=== PATIENT | female | born 1955 | race Caucasian/White ===

== ENCOUNTER → 2016-02-21 | Outpatient (REF) ==
[~2016-02-21] MED LIST: AMLO10TA2 PO; ASPI1TAB PO; ASPI32ECTA PO; ATOR1TAB21 PO; ATOR40TA PO; BACITAB3 PO; BUPR150T5 PO; CLON0.5T PO; CLOP75TA2 PO; CO Q100C10 PO; COLA100C PO; DOCU100C PO; ESTRCAP PO; FAMO20TA PO; LEVO50TA5 PO; LEXA1TAB2 PO; LOSA50TA20 PO; MAPA325T2 PO; METO75TA PO; NITR4TASL SL; POTA10CA PO; RISATAB3 PO; SENN1TAB4 PO; SYNT100T PO; TRAM50TA2 PO; VENL75CA PO; VITA400C2 PO
[2016-02-21 08:56] LABS: ANION GAP 9 MEQ/L (8-16); BLOOD UREA NITROGEN 12 MG/DL (7-18); CALCIUM LEVEL 9.4 MG/DL (8.5-10.1); CARBON DIOXIDE LEVEL 28 MEQ/L (21-32); CHLORIDE LEVEL 107 MEQ/L (98-107); CREATININE FOR GFR 0.61 MG/DL (0.55-1.02); GLOMERULAR FILTRATION RATE > 60.0 (>51); GLUCOSE, FASTING 125 MG/DL (70-105); POTASSIUM SERUM 3.9 MEQ/L (3.5-5.1); SODIUM LEVEL 144 MEQ/L (136-145)
== END ==
LOC: SKLAB2 07:00
PROVIDERS: ATTEND Family Medicine
DX: I63.9 Cerebral infarction, unspecified (principal)

== ENCOUNTER → 2016-02-22 | Outpatient (REF) | payer MEDICARE | LOC: M LAB 16:00 → SKLAB2 16:00 | PROVIDERS: ATTEND Family Medicine | DX: R05 Cough (principal) ==

== ENCOUNTER → 2016-02-28 | Outpatient (REF) ==
[2016-02-28 09:30] LABS: ANION GAP 12 MEQ/L (8-16); BLOOD UREA NITROGEN 11 MG/DL (7-18); CARBON DIOXIDE LEVEL 28 MEQ/L (21-32); CHLORIDE LEVEL 107 MEQ/L (98-107); CREATININE FOR GFR 0.61 MG/DL (0.55-1.02); GLOMERULAR FILTRATION RATE > 60.0 (>51); GLUCOSE, FASTING 167 MG/DL (70-105); SODIUM LEVEL 147 MEQ/L (136-145)
== END ==
LOC: SKLAB2 08:00
PROVIDERS: ATTEND Family Medicine
DX: I63.9 Cerebral infarction, unspecified (principal)

== ENCOUNTER → 2016-03-06 | Outpatient (REF) | payer MEDICARE ==
[2016-03-06 08:41] LABS: ANION GAP 9 MEQ/L (8-16); BLOOD UREA NITROGEN 13 MG/DL (7-18); CALCIUM LEVEL 9.8 MG/DL (8.5-10.1); CARBON DIOXIDE LEVEL 27 MEQ/L (21-32); CHLORIDE LEVEL 108 MEQ/L (98-107); CREATININE FOR GFR 0.64 MG/DL (0.55-1.02); FREE T4 1.48 NG/DL (0.76-1.46); GLOMERULAR FILTRATION RATE > 60.0 (>51); GLUCOSE, FASTING 139 MG/DL (70-105); POTASSIUM SERUM 4.3 MEQ/L (3.5-5.1); SODIUM LEVEL 144 MEQ/L (136-145)
== END ==
LOC: SKLAB2 07:00
PROVIDERS: ATTEND Family Medicine
DX: E03.9 Hypothyroidism, unspecified (principal)

== ENCOUNTER 2016-03-07 19:54 | Emergency (ER) | payer MEDICARE ==
--- NOTE | 2016-03-07 21:50 | REPUSA ---
HISTORY: Trauma TECHNIQUE: Axial CT was performed of the head without intravenous contrast by obtaining contiguous ax ial slices from the skull vertex to skull base at level of occipital condyles. COMPARISON: CT head 02/08/2016, MRI brain 03/30/2015 FINDINGS: No acute intracranial hemorrhage or evidence of acute transcortical ischemia. No suspicious intra-axi al or extra-axial fluid collection, midline shift, subfalcine herniation, or hydrocephalus. Stable 1.6 cm left thalamic hypodense lesion with rim like density on axial image 14, and 1.5 cm dens e mass in the left CPA. Stable prominence of the cortical sulci and ventricular system and perinephric white matter lucencies , more commonly due to age-appropriate atrophy and chronic small vessel ischemic changes respectively . Paranasal sinuses, mastoid air cells are well pneumatized. Optic globes, orbital compartments, and os seous structures are unremarkable. Right periorbital soft tissue emphysema likely from trauma. IMPRESSION: 1. Right periorbital soft tissue emphysema likely posttraumatic. No hematoma identified. 2. Stable 1.6 cm left thalamic hypodense lesion with a rim like density for which neoplasm is not exc luded. Otherwise no other evidence of acute intracranial hemorrhage. 3. Stable 1.5 cm left CPA mass which may represent meningioma.
--- NOTE | 2016-03-07 22:00 | REPUSA ---
HISTORY: Trauma TECHNIQUE: Multiple contiguous axial CT images were obtained through the facial bones at 2.5 mm slice thickness without the use of intravenous contrast. 1.25 mm axial reformations were created from whic h sagittal and coronal reformations were performed to evaluate the orbital floors. COMPARISON: None FINDINGS: Right zygomatic soft tissue swelling and periportal soft tissue emphysema. No acute facial bone fract ure. The pterygoid plates and zygomatic arches are intact. The orbits including the orbital floors ar e intact. The globes are unremarkable. There is no evidence of post septal inflammation or retrobulba r masses. The leonor dedrick, cribriform plate and fovea ethmoidalis are intact. The bilateral ostiomea lanie complexes are patent. The nasal septum is intact. Nasal turbinates and cavity are unremarkable. T he paranasal sinuses are well-developed and aerated. There are no air-fluid levels identified in the sinuses. The mandible is intact and both temporomandibular joints are located. The visualized intracr anial structures are unremarkable. IMPRESSION: No facial bone fracture. Right zygomatic soft tissue tissue swelling and periorbital soft tissue emph ysema.
--- NOTE | 2016-03-07 22:10 | REPUSA ---
Clinical statement: Trauma Technique: Contiguous noncontrast transaxial 2.[address] images were obtained through the cervical spin e. Reconstructions were then created in the axial plane at 1.25 mm from which reformations were gener ated in the coronal and sagittal planes to assess spinal alignment. Comparison: None Findings: No prevertebral soft tissue swelling is seen. No acute fracture, dislocation, or suspicious lesion. Multilevel degenerative changes, moderate at C3 -C6 with endplate sclerosis disc space narrowing, anterior and posterior spurring, and with mild face t arthropathy. Straightening of cervical lordosis which may be voluntary positional or from muscle sp asm. Spinal canal appears grossly patent. Impression: No acute fracture. Moderate C3-C6 degenerative changes as described.
--- NOTE | 2016-03-07 22:57 | EDDOCDS ---
Physician Documentation [facility] Name: Merissa Mccormack Age: 60 yrs Sex: Female : 1955 Arrival Date: 03/07/2016 Time: 19:54 Bed Family 1 Private MD: Arnaud Pacheco MD Disposition: 03/07/16 22:27 Discharged to Home/Self Care. Impression: Fall from chair, Unspecified injury of head, Laceration without foreign body of right eyelid and periocular area. - Condition is Stable. - Discharge Instructions: Head Injury, Adult, Facial Laceration, Laceration Care, Adult, Dlez-ha-[id number]. - Medication Reconciliation, Local Pharmacy Hours form. - Follow up: Arnaud Pacheco; When: 2 - 3 days; Reason: Recheck today's complaints, Continuance of care. - Problem is new. - Symptoms are unchanged. Historical: - Allergies: Bees; - Home Meds: 1. levothyroxine 50 mcg Oral tab 1 tab once daily (Last dose: 03/07/2016 06:22) 2. famotidine 20 mg Oral tab 3. CoQ-10 100 mg oral cap 4. docusate sodium 100 mg Oral cap 1 cap once daily 5. amlodipine 10 mg Oral tab 1 tab once daily (Last dose: 03/07/2016 09:09) 6. Plavix 75 mg Oral tab 1 tab once daily (Last dose: 03/07/2016 09:09) 7. losartan 50 mg oral tab 1 tab once daily (Last dose: 03/07/2016 09:09) 8. Lopressor 75 mg Oral 1 tab 2 times per day (Last dose: 03/07/2016 09:07) 9. Wellbutrin 150 mg Oral 1 tab daily (Last dose: 03/07/2016 09:07) 10. atorvastatin 10 mg oral tab 1 tab once daily - PMHx: Arthritis; Constipation, Chronic; CVA; Depression; hyperlipidemia; Hypothyroidism; - PSHx: total shoulder surgery; Tonsillectomy; - Social history: Smoking status: Patient states former smoker of tobacco. No barriers to communication noted. - Family history: Not pertinent. - : The pt / caregiver states he / she is on anticoagulants: Plavix. Home medication list is obtained from the facility APR. - Exposure Risk Screening:: None identified. Vital Signs: 03/07 20:14 BP 141 / 58; Pulse 94; Resp 18; Temp 99(O); Pulse Ox 95% on R/A; Weight 71.12 kg / ko2 156.79 lbs; Height 60 in. (152.40 cm); Pain 0/10; 22:33 BP 125 / 60; Pulse 54; Resp 18; Temp 98.7(O); Pulse Ox 100% on R/A; Pain 0/10; jose guadalupe 22:49 BP 149 / 64; Pulse 98; Resp 20; Temp 99.3(O); Pulse Ox 100% on R/A; Pain 0/10; ls3 20:14 Body Mass Index 30.62 (71.12 kg, 152.40 cm) ko2 [place] Coma Score: 20:02 Eye Response: spontaneous(4). Verbal Response: oriented(5). Motor Response: obeys ko2 commands(6). Total: 15. MDM: 20:34 CT Head Without Contrast Ordered. EDMS 20:35 CT Spine,Cervical W/o Contrast Ordered. EDMS 20:35 CT Maxilofacial W/out Contrast Ordered. EDMS 20:35 Pelvis Ordered. EDMS 22:01 Financial registration complete. tomi Signatures: Dispatcher [employer] EDMS Prashant Ervin, Ursula WittRN RN [email or web address] Martina Murphy MTDD
--- NOTE | 2016-03-07 22:57 | EDDOCDS ---
Nurse's Notes [facility] Name: Merissa Mccormack Age: 60 yrs Sex: Female : 1955 Arrival Date: 03/07/2016 Time: 19:54 Bed Family 1 Private MD: Arnaud Pacheco MD Diagnosis: Fall from chair;Unspecified injury of head;Laceration without foreign body of right eyelid and periocular area Presentation: 03/07 20:02 This patient has no additional risk factors. Mechanism of Injury: The problem was ko2 sustained at a long term or assisted living facility, resulted from a fall. Suicide/Homicide risk assessment- the patient denies having any suicidal and/or homicidal ideations and does not present with any other emotional, behavioral or mental health complaints. Status: Patient is not a food service sales representatives or dependent. Transition of care: patient was received from [facility]. Care prior to arrival: See EMS report. 20:02 Acuity: BULMARO Level 3 [facility] 20:02 Method Of Arrival: Ambulance [facility] 20:16 Adult Sepsis Screening: The patient does not have new or worsening altered mentation. [facility] Patient's respiratory rate is less than 22. Systolic blood pressure is greater than 100. Patient has a qSOFA score of 0- Negative Sepsis Screen. 20:45 Presenting complaint: EMS states: pt fell from wheelchair and is on plavix. Was sent to [facility] the ER to be evaluated. Pt has right side deficits from previous stroke. Triage Assessment: 20:13 General: Appears in no apparent distress, comfortable. Pain: Denies pain. HIV screening [facility] for this visit Offered previously. The patient is triaged at the bedside. See Assessment in Nurses Notes section of ED record. Neurological: Level of Consciousness is awake, alert, Reports no additional symptoms. Respiratory: Airway is patent Respiratory effort is even, unlabored, Respiratory pattern is regular, symmetrical. GI: Abdomen is non- distended. Derm: Bruising that is Swollen area noted on right eye, right cheek and right ear. Historical: - Allergies: Bees; - Home Meds: 1. levothyroxine 50 mcg Oral tab 1 tab once daily (Last dose: 03/07/2016 06:22) 2. famotidine 20 mg Oral tab 3. CoQ-10 100 mg oral cap 4. docusate sodium 100 mg Oral cap 1 cap once daily 5. amlodipine 10 mg Oral tab 1 tab once daily (Last dose: 03/07/2016 09:09) 6. Plavix 75 mg Oral tab 1 tab once daily (Last dose: 03/07/2016 09:09) 7. losartan 50 mg oral tab 1 tab once daily (Last dose: 03/07/2016 09:09) 8. Lopressor 75 mg Oral 1 tab 2 times per day (Last dose: 03/07/2016 09:07) 9. Wellbutrin 150 mg Oral 1 tab daily (Last dose: 03/07/2016 09:07) 10. atorvastatin 10 mg oral tab 1 tab once daily - PMHx: Arthritis; Constipation, Chronic; CVA; Depression; hyperlipidemia; Hypothyroidism; - PSHx: total shoulder surgery; Tonsillectomy; - Social history: Smoking status: Patient states former smoker of tobacco. No barriers to communication noted. - Family history: Not pertinent. - : The pt / caregiver states he / she is on anticoagulants: Plavix. Home medication list is obtained from the facility APR. - Exposure Risk Screening:: None identified. Screenin:16 Screening information is obtained from prior medical records. Fall risk: At risk due to ko2 immobility, prior history of falls. Assistance ADL's: Requires assistance with meal preparation, this assistance is provided by residence staff. Abuse/DV Screen: The patient / caregiver reports he/she is: not in a situation that causes fear, pain or injury. Nutritional screening: No deficits noted. Advance Directives: Currently, there is a health care proxy, Maya Pham. There is no active DNR order. There is no living will. There is no Power of Quarter Backer. 21:16 home support is adequate. ko2 Assessment: 20:15 General: See triage assessment. ko2 21:15 General: Appears in no apparent distress, Behavior is cooperative. Pain: Denies pain. ko2 Neurological: Level of Consciousness is awake. Respiratory: No deficits noted. 22:47 General: Appears in no apparent distress, comfortable, Behavior is cooperative. Pain: ko2 Denies pain. Neurological: Level of Consciousness is awake. Respiratory: No deficits noted. Derm: bandaid placed over right eyebrow. Vital Signs: 20:14 BP 141 / 58; Pulse 94; Resp 18; Temp 99(O); Pulse Ox 95% on R/A; Weight 71.12 kg; ko2 Height 60 in. (152.40 cm); Pain 0/10; 22:33 BP 125 / 60; Pulse 54; Resp 18; Temp 98.7(O); Pulse Ox 100% on R/A; Pain 0/10; jose guadalupe 22:49 BP 149 / 64; Pulse 98; Resp 20; Temp 99.3(O); Pulse Ox 100% on R/A; Pain 0/10; ls3 20:14 Body Mass Index 30.62 (71.12 kg, 152.40 cm) ko2 Vitals: 20:14 Log In Time N/A - ambulance arrival. ko2 Indu Coma Score: 20:02 Eye Response: spontaneous(4). Verbal Response: oriented(5). Motor Response: obeys ko2 commands(6). Total: 15. ED Course: 19:55 Patient visited by Cathleen Gentile, Network Support Technician. ml3 19:55 Patient moved to Waiting ml3 19:57 Arnaud Pacheco is Private Physician. ml3 19:58 Parag Onofre, RN is Primary Nurse. ml3 19:58 Patient moved to 9 ml3 20:01 Ursula Madrid,RACHEL is Primary Nurse. ko2 20:05 Triage Initiated ko2 20:07 Primary Nurse role handed off by Parag Onofre, RACHEL sls1 20:25 [facility] ke 20:25 Patient visited by Prashant Ervin FNP. ke 20:25 Patient visited by Prashant Ervin FNP. ke 20:47 Patient visited by Prashant Ervin FNP. ke 21:14 Patient visited by Prashant Ervin FNP. ke 21:16 The patient / caregiver is instructed regarding the plan of care and ED course. ko2 21:16 No IV's were initiated during this patient's visit. ko2 21:46 Patient visited by Prashant Ervin FNP. ke 22:13 CT Head Without Contrast Returned. EDMS 22:13 CT Maxilofacial W/out Contrast Returned. EDMS 22:13 CT Spine,Cervical W/o Contrast Returned. EDMS 22:17 Patient visited by Prashant Ervin FNP. ke 22:25 Arnaud Pacheco is Referral Physician. ke 22:33 Patient visited by Tiffanie Sotelo PCA. jose guadalupe 22:55 Patient moved to Family 1 feb 22:56 No procedures done that require assistance. ko2 Order Results: Radiology Order: CT Head Without Contrast Test: CT Head Without Contrast REASON FOR EXAMINATION: Trauma; ; HISTORY: Trauma; TECHNIQUE: Axial CT was performed of the head without intravenous contrast by obtaining contiguous ax; ial slices from the skull vertex to skull base at level of occipital condyles.; COMPARISON: CT head 02/08/2016, MRI brain 03/30/2015; FINDINGS:; No acute intracranial hemorrhage or evidence of acute transcortical ischemia. No suspicious intra-axi; al or extra-axial fluid collection, midline shift, subfalcine herniation, or hydrocephalus.; Stable 1.6 cm left thalamic hypodense lesion with rim like density on axial image 14, and 1.5 cm dens; e mass in the left CPA.; Stable prominence of the cortical sulci and ventricular system and perinephric white matter lucencies; , more commonly due to age-appropriate atrophy and chronic small vessel ischemic changes respectively; .; Paranasal sinuses, mastoid air cells are well pneumatized. Optic globes, orbital compartments, and os; seous structures are unremarkable.; Right periorbital soft tissue emphysema likely from trauma.; IMPRESSION:; 1. Right periorbital soft tissue emphysema likely posttraumatic. No hematoma identified.; 2. Stable 1.6 cm left thalamic hypodense lesion with a rim like density for which neoplasm is not exc; luded. Otherwise no other evidence of acute intracranial hemorrhage.; 3. Stable 1.5 cm left CPA mass which may represent meningioma.; ; Radiology Order: CT Spine,Cervical W/o Contrast Test: CT Spine,Cervical W/o Contrast REASON FOR EXAMINATION: Trauma; ; Clinical statement: Trauma; Technique: Contiguous noncontrast transaxial 2.[address] images were obtained through the cervical spin; e. Reconstructions were then created in the axial plane at 1.25 mm from which reformations were gener; ated in the coronal and sagittal planes to assess spinal alignment.; Comparison: None; Findings:; No prevertebral soft tissue swelling is seen.; No acute fracture, dislocation, or suspicious lesion. Multilevel degenerative changes, moderate at C3; -C6 with endplate sclerosis disc space narrowing, anterior and posterior spurring, and with mild face; t arthropathy. Straightening of cervical lordosis which may be voluntary positional or from muscle sp; asm.; Spinal canal appears grossly patent.; Impression:; No acute fracture. Moderate C3-C6 degenerative changes as described.; ; Radiology Order: CT Maxilofacial W/out Contrast Test: CT Maxilofacial W/out Contrast REASON FOR EXAMINATION: Trauma; ; HISTORY: Trauma; TECHNIQUE: Multiple contiguous axial CT images were obtained through the facial bones at 2.5 mm slice; thickness without the use of intravenous contrast. 1.25 mm axial reformations were created from whic; h sagittal and coronal reformations were performed to evaluate the orbital floors.; COMPARISON: None; FINDINGS:; Right zygomatic soft tissue swelling and periportal soft tissue emphysema. No acute facial bone fract; ure. The pterygoid plates and zygomatic arches are intact. The orbits including the orbital floors ar; e intact. The globes are unremarkable. There is no evidence of post septal inflammation or retrobulba; r masses. The leonor dedrick, cribriform plate and fovea ethmoidalis are intact. The bilateral ostiomea; lanie complexes are patent. The nasal septum is intact. Nasal turbinates and cavity are unremarkable. T; he paranasal sinuses are well-developed and aerated. There are no air-fluid levels identified in the; sinuses. The mandible is intact and both temporomandibular joints are located. The visualized intracr; anial structures are unremarkable.; ; IMPRESSION:; No facial bone fracture. Right zygomatic soft tissue tissue swelling and periorbital soft tissue emph; ysema.; ; Outcome: 22:27 Discharge ordered by Provider. jessica 22:34 Admission hand-off: Report called to Edie [facility] Blood Bank Laboratory Technologist feb 22:55 Discharge Assessment: Patient awake, alert and oriented x 3. No cognitive and/or ko2 functional deficits noted. Patient verbalized understanding of disposition instructions. patient administered narcotics - no. The following High Risk Discharge criteria are identified: None. Discharged to long term. via stretcher with [facility] Aide and INTELLIGENCE GROUP SUPERVISOR from stretcher. Condition: stable. CT Study completed. Property sent home with patient. 22:56 Patient left the ED. ko2 Signatures: Dispatcher [employer] EDMS Merly Oliver, RN RN Prashant Cha, SECURITIES SALES ASSOCIATE SECURITIES SALES ASSOCIATE jessica Cathleen Gentile, Network Support Technician Unit ml3 Tiffanie Sotelo, INTELLIGENCE GROUP SUPERVISOR INTELLIGENCE GROUP SUPERVISOR Gwen Sharma RN RN sls1 Ursula Madrid RN RN ko2 Solange Robertson, INTELLIGENCE GROUP SUPERVISOR INTELLIGENCE GROUP SUPERVISOR ls3 Corrections: (The following items were deleted from the chart) 20:05 19:58 Presenting complaint: ko2 ko2 20:47 19:58 Presenting complaint: EMS states: pt was found on the floor. it is unknown how pt ko2 ended up on the floor as she is non ambulatory from a previous stroke and has left sided deficits. Pt is on plavix. Pt has a small laceration to right eye brow Presenting complaint: EMS states: pt was found on the floor. it is unknown how pt ended up on the floor as she is non ambulatory from a previous stroke and has left sided deficits. Pt is on plavix. Pt has a small laceration to right eye brow ko2 MTDD
--- NOTE | 2016-03-08 08:49 | REP ---
AP pelvis: Single view. History: Trauma. Findings: AP view of the pelvis demonstrates a vena cava filter at the top of the film in the right paraspinal region. Bowel gas pattern is unremarkable. There is mild diffuse osteopenia. No pelvic or sacral fracture is seen. No hip fracture is noted. There is mild osteoarthritis in the hips. Impression: No fracture seen. Signed by Roberto Carlos Sevilla MD 03/08/2016 08:04 P
--- NOTE | 2016-03-09 23:57 | EDDOCDS ---
Physician Documentation [facility] Name: Merissa Mccormack Age: 60 yrs Sex: Female : 1955 Arrival Date: 03/07/2016 Time: 19:54 Bed Family 1 Private MD: Arnaud Pacheco MD Disposition: 03/07/16 22:27 Discharged to Home/Self Care. Impression: Fall from chair, Unspecified injury of head, Laceration without foreign body of right eyelid and periocular area. - Condition is Stable. - Discharge Instructions: Head Injury, Adult, Facial Laceration, Laceration Care, Adult, [id number]. - Medication Reconciliation, Local Pharmacy Hours form. - Follow up: Arnaud Pacheco; When: 2 - 3 days; Reason: Recheck today's complaints, Continuance of care. - Problem is new. - Symptoms are unchanged. Historical: - Allergies: Bees; - Home Meds: 1. levothyroxine 50 mcg Oral tab 1 tab once daily (Last dose: 03/07/2016 06:22) 2. famotidine 20 mg Oral tab 3. CoQ-10 100 mg oral cap 4. docusate sodium 100 mg Oral cap 1 cap once daily 5. amlodipine 10 mg Oral tab 1 tab once daily (Last dose: 03/07/2016 09:09) 6. Plavix 75 mg Oral tab 1 tab once daily (Last dose: 03/07/2016 09:09) 7. losartan 50 mg oral tab 1 tab once daily (Last dose: 03/07/2016 09:09) 8. Lopressor 75 mg Oral 1 tab 2 times per day (Last dose: 03/07/2016 09:07) 9. Wellbutrin 150 mg Oral 1 tab daily (Last dose: 03/07/2016 09:07) 10. atorvastatin 10 mg oral tab 1 tab once daily - PMHx: Arthritis; Constipation, Chronic; CVA; Depression; hyperlipidemia; Hypothyroidism; - PSHx: total shoulder surgery; Tonsillectomy; - Social history: Smoking status: Patient states former smoker of tobacco. No barriers to communication noted. - Family history: Not pertinent. - : The pt / caregiver states he / she is on anticoagulants: Plavix. Home medication list is obtained from the facility APR. - Exposure Risk Screening:: None identified. Vital Signs: 03/07 20:14 BP 141 / 58; Pulse 94; Resp 18; Temp 99(O); Pulse Ox 95% on R/A; Weight 71.12 kg / ko2 156.79 lbs; Height 60 in. (152.40 cm); Pain 0/10; 22:33 BP 125 / 60; Pulse 54; Resp 18; Temp 98.7(O); Pulse Ox 100% on R/A; Pain 0/10; jose guadalupe 22:49 BP 149 / 64; Pulse 98; Resp 20; Temp 99.3(O); Pulse Ox 100% on R/A; Pain 0/10; ls3 20:14 Body Mass Index 30.62 (71.12 kg, 152.40 cm) ko2 [place] Coma Score: 20:02 Eye Response: spontaneous(4). Verbal Response: oriented(5). Motor Response: obeys ko2 commands(6). Total: 15. MDM: 20:34 CT Head Without Contrast Ordered. EDMS 20:35 CT Spine,Cervical W/o Contrast Ordered. EDMS 20:35 CT Maxilofacial W/out Contrast Ordered. EDMS 20:35 Pelvis Ordered. EDMS 22:01 Financial registration complete. gjb 03/08 10:04 T-Sheet-- Draft Copy was scanned into [employer] and attached to record. gb 14:41 ED course: dr jade faxed formal report of ct head for fu mgl. jessica Signatures: Dispatcher [employer] EDMS Aime Dawn MD MD ml Barnhardt, Gloria, Reg Reg Prashant Bell, MANAGER E [employer] rUsula Mathew RN RN ko2 Martina Murphy The chart was reviewed and I authenticate all verbal orders and agree with the evaluation and treatment provided.Attachments: 10:04 T-Sheet-- Draft Copy gb Chart Complete MTDD
--- NOTE | 2016-03-09 23:57 | EDDOCDS ---
Nurse's Notes [facility] Name: Merissa Mccormack Age: 60 yrs Sex: Female : 1955 Arrival Date: 03/07/2016 Time: 19:54 Bed Family 1 Private MD: Arnaud Pacheco MD Diagnosis: Fall from chair;Unspecified injury of head;Laceration without foreign body of right eyelid and periocular area Presentation: 03/07 20:02 This patient has no additional risk factors. Mechanism of Injury: The problem was ko2 sustained at a [place] [facility] or assisted living facility, resulted from a fall. Suicide/Homicide risk assessment- the patient denies having any suicidal and/or homicidal ideations and does not present with any other emotional, behavioral or mental health complaints. Status: Patient is not a manager managed backup services or dependent. Transition of care: patient was received from [facility]. Care prior to arrival: See EMS report. 20:02 Acuity: [facility] Method Of Ar[facility] Adult Sepsis Screening: The patient does not have new or worsening altered mentation. [facility] Patient's respiratory rate is less than 22. Systolic blood pressure is greater than 100. Patient has a qSOFA score of 0- Negative Sepsis Screen. 20:45 Presenting complaint: EMS states: pt fell from wheelchair and is on plavix. [facility]. Pt has right side deficits from previous stroke. Triage Assessment: 20:13 General: Appears in no apparent distress, comfortable. Pain: Denies pain. HIV screening [facility] for this visit Offered previously. The patient is triaged at the bedside. See Assessment in Nurses Notes section of ED record. Neurological: Level of Consciousness is awake, alert, Reports no additional symptoms. Respiratory: Airway is patent Respiratory effort is even, unlabored, Respiratory pattern is regular, symmetrical. GI: Abdomen is non- distended. Derm: Bruising that is Swollen area noted on right eye, right cheek and right ear. Historical: - Allergies: Bees; - Home Meds: 1. levothyroxine 50 mcg Oral tab 1 tab once daily (Last dose: 03/07/2016 06:22) 2. famotidine 20 mg Oral tab 3. CoQ-10 100 mg oral cap 4. docusate sodium 100 mg Oral cap 1 cap once daily 5. amlodipine 10 mg Oral tab 1 tab once daily (Last dose: 03/07/2016 09:09) 6. Plavix 75 mg Oral tab 1 tab once daily (Last dose: 03/07/2016 09:09) 7. losartan 50 mg oral tab 1 tab once daily (Last dose: 03/07/2016 09:09) 8. Lopressor 75 mg Oral 1 tab 2 times per day (Last dose: 03/07/2016 09:07) 9. Wellbutrin 150 mg Oral 1 tab daily (Last dose: 03/07/2016 09:07) 10. atorvastatin 10 mg oral tab 1 tab once daily - PMHx: Arthritis; Constipation, Chronic; CVA; Depression; hyperlipidemia; Hypothyroidism; - PSHx: total shoulder surgery; Tonsillectomy; - Social history: Smoking status: Patient states former smoker of tobacco. No barriers to communication noted. - Family history: Not pertinent. - : The pt / caregiver states he / she is on anticoagulants: Plavix. Home medication list is obtained from the facility APR. - Exposure Risk Screening:: None identified. Screenin:16 Screening information is obtained from prior medical records. Fall risk: At risk due to ko2 immobility, prior history of falls. Assistance ADL's: Requires assistance with meal preparation, this assistance is provided by residence staff. Abuse/DV Screen: The patient / caregiver reports he/she is: not in a situation that causes fear, pain or injury. Nutritional screening: No deficits noted. Advance Directives: Currently, there is a health care proxy, Maya Pham. There is no active DNR order. There is no living will. There is no Power of Rehabilitation Case Coordinator. 21:16 home support is adequate. ko2 Assessment: 20:15 General: See triage assessment. ko2 21:15 General: Appears in no apparent distress, Behavior is cooperative. Pain: Denies pain. ko2 Neurological: Level of Consciousness is awake. Respiratory: No deficits noted. 22:47 General: Appears in no apparent distress, comfortable, Behavior is cooperative. Pain: ko2 Denies pain. Neurological: Level of Consciousness is awake. Respiratory: No deficits noted. Derm: bandaid placed over right eyebrow. Vital Signs: 20:14 BP 141 / 58; Pulse 94; Resp 18; Temp 99(O); Pulse Ox 95% on R/A; Weight 71.12 kg; ko2 Height 60 in. (152.40 cm); Pain 0/10; 22:33 BP 125 / 60; Pulse 54; Resp 18; Temp 98.7(O); Pulse Ox 100% on R/A; Pain 0/10; jose guadalupe 22:49 BP 149 / 64; Pulse 98; Resp 20; Temp 99.3(O); Pulse Ox 100% on R/A; Pain 0/10; ls3 20:14 Body Mass Index 30.62 (71.12 kg, 152.40 cm) ko2 Vitals: 20:14 Log In Time N/A - ambulance arrival. ko2 Indu Coma Score: 20:02 Eye Response: spontaneous(4). Verbal Response: oriented(5). Motor Response: obeys ko2 commands(6). Total: 15. ED Course: 19:55 Patient visited by Cathleen Gentile, Mud Jack Nozzle Worker. ml3 19:55 Patient moved to Waiting ml3 19:57 Arnaud Pacheco is Private Physician. ml3 19:58 Parag Onofre, RN is Primary Nurse. ml3 19:58 Patient moved to 9 ml3 20:01 Ursula Madrid,RACHEL is Primary Nurse. ko2 20:05 Triage Initiated ko2 20:07 Primary Nurse role handed off by Parag Onofre, RACHEL sls1 20:25 [facility] ke 20:25 Patient visited by Prashant Ervin FNP. ke 20:25 Patient visited by Prashant Ervin FNP. ke 20:47 Patient visited by Prashant Ervin FNP. ke 21:14 Patient visited by Prashant Ervin FNP. ke 21:16 The patient / caregiver is instructed regarding the plan of care and ED course. ko2 21:16 No IV's were initiated during this patient's visit. ko2 21:46 Patient visited by Prashant Ervin FNP. ke 22:13 CT Head Without Contrast Returned. EDMS 22:13 CT Maxilofacial W/out Contrast Returned. EDMS 22:13 CT Spine,Cervical W/o Contrast Returned. EDMS 22:17 Patient visited by Prashant Ervin FNP. ke 22:25 Arnaud Pacheco is Referral Physician. ke 22:33 Patient visited by Tiffanie Sotelo PCA. jose guadalupe 22:55 Patient moved to Family 1 feb 22:56 No procedures done that require assistance. ko2 03/08 09:10 Pelvis Returned. EDMS 10:04 T-Sheet-- Draft Copy was scanned into [employer] and attached to record. gb Order Results: Radiology Order: CT Head Without Contrast Test: CT Head Without Contrast REASON FOR EXAMINATION: Trauma; ; HISTORY: Trauma; TECHNIQUE: Axial CT was performed of the head without intravenous contrast by obtaining contiguous ax; ial slices from the skull vertex to skull base at level of occipital condyles.; COMPARISON: CT head 02/08/2016, MRI brain 03/30/2015; FINDINGS:; No acute intracranial hemorrhage or evidence of acute transcortical ischemia. No suspicious intra-axi; al or extra-axial fluid collection, midline shift, subfalcine herniation, or hydrocephalus.; Stable 1.6 cm left thalamic hypodense lesion with rim like density on axial image 14, and 1.5 cm dens; e mass in the left CPA.; Stable prominence of the cortical sulci and ventricular system and perinephric white matter lucencies; , more commonly due to age-appropriate atrophy and chronic small vessel ischemic changes respectively; .; Paranasal sinuses, mastoid air cells are well pneumatized. Optic globes, orbital compartments, and os; seous structures are unremarkable.; Right periorbital soft tissue emphysema likely from trauma.; IMPRESSION:; 1. Right periorbital soft tissue emphysema likely posttraumatic. No hematoma identified.; 2. Stable 1.6 cm left thalamic hypodense lesion with a rim like density for which neoplasm is not exc; luded. Otherwise no other evidence of acute intracranial hemorrhage.; 3. Stable 1.5 cm left CPA mass which may represent meningioma.; ; Radiology Order: CT Spine,Cervical W/o Contrast Test: CT Spine,Cervical W/o Contrast REASON FOR EXAMINATION: Trauma; ; Clinical statement: Trauma; Technique: Contiguous noncontrast transaxial 2.[address] images were obtained through the cervical spin; e. Reconstructions were then created in the axial plane at 1.25 mm from which reformations were gener; ated in the coronal and sagittal planes to assess spinal alignment.; Comparison: None; Findings:; No prevertebral soft tissue swelling is seen.; No acute fracture, dislocation, or suspicious lesion. Multilevel degenerative changes, moderate at C3; -C6 with endplate sclerosis disc space narrowing, anterior and posterior spurring, and with mild face; t arthropathy. Straightening of cervical lordosis which may be voluntary positional or from muscle sp; asm.; Spinal canal appears grossly patent.; Impression:; No acute fracture. Moderate C3-C6 degenerative changes as described.; ; Radiology Order: CT Maxilofacial W/out Contrast Test: CT Maxilofacial W/out Contrast REASON FOR EXAMINATION: Trauma; ; HISTORY: Trauma; TECHNIQUE: Multiple contiguous axial CT images were obtained through the facial bones at 2.5 mm slice; thickness without the use of intravenous contrast. 1.25 mm axial reformations were created from whic; h sagittal and coronal reformations were performed to evaluate the orbital floors.; COMPARISON: None; FINDINGS:; Right zygomatic soft tissue swelling and periportal soft tissue emphysema. No acute facial bone fract; ure. The pterygoid plates and zygomatic arches are intact. The orbits including the orbital floors ar; e intact. The globes are unremarkable. There is no evidence of post septal inflammation or retrobulba; r masses. The leonor dedrick, cribriform plate and fovea ethmoidalis are intact. The bilateral ostiomea; lanie complexes are patent. The nasal septum is intact. Nasal turbinates and cavity are unremarkable. T; he paranasal sinuses are well-developed and aerated. There are no air-fluid levels identified in the; sinuses. The mandible is intact and both temporomandibular joints are located. The visualized intracr; anial structures are unremarkable.; ; IMPRESSION:; No facial bone fracture. Right zygomatic soft tissue tissue swelling and periorbital soft tissue emph; ysema.; ; Radiology Order: Pelvis Test: Pelvis REASON FOR EXAMINATION: Trauma; AP pelvis: Single view.; ; History: Trauma.; ; Findings: AP view of the pelvis demonstrates a vena cava filter at the top of; the film in the right paraspinal region. Bowel gas pattern is unremarkable.; There is mild diffuse osteopenia. No pelvic or sacral fracture is seen. No hip; fracture is noted. There is mild osteoarthritis in the hips.; ; Impression:; ; No fracture seen.; ; ; Signed by; Roberto Carlos Sevilla MD 03/08/2016 08:04 P; Outcome: 03/07 22:27 Discharge ordered by Provider. jessica 22:34 Admission hand-off: Report called to Edie RAMOS [facility] Captain Airline Pilot feb 22:55 Discharge Assessment: Patient awake, alert and oriented x 3. No cognitive and/or ko2 functional deficits noted. Patient verbalized understanding of disposition instructions. patient administered narcotics - no. The following High Risk Discharge criteria are identified: None. [facility] [place] [facility] via [facility]cher with [facility] Aide and ELECTRICIAN SOUND from stretcher. Condition: stable. CT Study completed. Property sent home with patient. 22:56 Patient left the ED. ko2 Signatures: Dispatcher [employer] EDMS Merly Oliver RN RN jan Barnhardt, Nery, Reg Reg Prashant Bell, ANALOG IC DESIGN ENGINEER ANALOG IC DESIGN ENGINEER Cathleen Monroe, Mud Jack Nozzle Worker Unit ml3 Tiffanie Sotelo, ELECTRICIAN SOUND ELECTRICIAN SOUND Gwen Sharma RN RN sls1 Ursula Madrid RN RN ko2 Solange Robertson, ELECTRICIAN SOUND ELECTRICIAN SOUND ls3 Corrections: (The following items were deleted from the chart) 20:05 19:58 Presenting complaint: ko2 ko2 20:47 19:58 Presenting complaint: EMS states: pt was found on the floor. it is unknown how pt ko2 ended up on the floor as she is non ambulatory from a previous stroke and has left sided deficits. Pt is on plavix. Pt has a small laceration to right eye brow Presenting complaint: EMS states: pt was found on the floor. it is unknown how pt ended up on the floor as she is non ambulatory from a previous stroke and has left sided deficits. Pt is on plavix. Pt has a small laceration to right eye brow ko2 Chart Complete MTDD
--- NOTE | 2016-03-09 23:57 | EDDOCDS ---
Physician Documentation [facility] Name: Merissa Mccormack Age: 60 yrs Sex: Female : 1955 Arrival Date: 03/07/2016 Time: 19:54 Bed Family 1 Private MD: Arnaud Pacheco MD Disposition: 03/07/16 22:27 Discharged to Home/Self Care. Impression: Fall from chair, Unspecified injury of head, Laceration without foreign body of right eyelid and periocular area. - Condition is Stable. - Discharge Instructions: Head Injury, Adult, Facial Laceration, Laceration Care, Adult, [id number]. - Medication Reconciliation, Local Pharmacy Hours form. - Follow up: Arnaud Pacheco; When: 2 - 3 days; Reason: Recheck today's complaints, Continuance of care. - Problem is new. - Symptoms are unchanged. Historical: - Allergies: Bees; - Home Meds: 1. levothyroxine 50 mcg Oral tab 1 tab once daily (Last dose: 03/07/2016 06:22) 2. famotidine 20 mg Oral tab 3. CoQ-10 100 mg oral cap 4. docusate sodium 100 mg Oral cap 1 cap once daily 5. amlodipine 10 mg Oral tab 1 tab once daily (Last dose: 03/07/2016 09:09) 6. Plavix 75 mg Oral tab 1 tab once daily (Last dose: 03/07/2016 09:09) 7. losartan 50 mg oral tab 1 tab once daily (Last dose: 03/07/2016 09:09) 8. Lopressor 75 mg Oral 1 tab 2 times per day (Last dose: 03/07/2016 09:07) 9. Wellbutrin 150 mg Oral 1 tab daily (Last dose: 03/07/2016 09:07) 10. atorvastatin 10 mg oral tab 1 tab once daily - PMHx: Arthritis; Constipation, Chronic; CVA; Depression; hyperlipidemia; Hypothyroidism; - PSHx: total shoulder surgery; Tonsillectomy; - Social history: Smoking status: Patient states former smoker of tobacco. No barriers to communication noted. - Family history: Not pertinent. - : The pt / caregiver states he / she is on anticoagulants: Plavix. Home medication list is obtained from the facility APR. - Exposure Risk Screening:: None identified. Vital Signs: 03/07 20:14 BP 141 / 58; Pulse 94; Resp 18; Temp 99(O); Pulse Ox 95% on R/A; Weight 71.12 kg / ko2 156.79 lbs; Height 60 in. (152.40 cm); Pain 0/10; 22:33 BP 125 / 60; Pulse 54; Resp 18; Temp 98.7(O); Pulse Ox 100% on R/A; Pain 0/10; jose guadalupe 22:49 BP 149 / 64; Pulse 98; Resp 20; Temp 99.3(O); Pulse Ox 100% on R/A; Pain 0/10; ls3 20:14 Body Mass Index 30.62 (71.12 kg, 152.40 cm) ko2 [place] Coma Score: 20:02 Eye Response: spontaneous(4). Verbal Response: oriented(5). Motor Response: obeys ko2 commands(6). Total: 15. MDM: 20:34 CT Head Without Contrast Ordered. EDMS 20:35 CT Spine,Cervical W/o Contrast Ordered. EDMS 20:35 CT Maxilofacial W/out Contrast Ordered. EDMS 20:35 Pelvis Ordered. EDMS 22:01 Financial registration complete. gjb 03/08 10:04 T-Sheet-- Draft Copy was scanned into [employer] and attached to record. gb 14:41 ED course: dr jade faxed formal report of ct head for fu mgl. jessica Signatures: Dispatcher [employer] EDMS Aime Dawn MD MD ml Barnhardt, Gloria, Reg Reg Prashant Bell, WAYBILL CLERK Ursula Mathew RN RN ko2 Martina Murphy The chart was reviewed and I authenticate all verbal orders and agree with the evaluation and treatment provided.Attachments: 10:04 T-Sheet-- Draft Copy gb Chart Complete MTDD
== END 2016-03-07 22:56 | disposition home or self-care (01) ==
LOC: M ED 19:54
DX: S01.91XA Laceration without foreign body of unspecified part of head, initial encounter (principal); W07.XXXA Fall from chair, initial encounter; Y92.129 Unspecified place in nursing home as the place of occurrence of the external cause; Y93.89 Activity, other specified; Y99.8 Other external cause status; Z86.73 Personal history of transient ischemic attack (TIA), and cerebral infarction without residual deficits; E03.9 Hypothyroidism, unspecified; M19.90 Unspecified osteoarthritis, unspecified site; K59.09 Other constipation; F32.9 Major depressive disorder, single episode, unspecified; E78.5 Hyperlipidemia, unspecified; Z79.899 Other long term (current) drug therapy; Z79.52 Long term (current) use of systemic steroids; Z79.01 Long term (current) use of anticoagulants; Z91.030 Bee allergy status; Z87.891 Personal history of nicotine dependence

== ENCOUNTER → 2016-03-13 | Outpatient (REF) ==
[2016-03-13 09:34] LABS: ANION GAP 9 MEQ/L (8-16); BLOOD UREA NITROGEN 11 MG/DL (7-18); CALCIUM LEVEL 9.5 MG/DL (8.5-10.1); CARBON DIOXIDE LEVEL 29 MEQ/L (21-32); CHLORIDE LEVEL 105 MEQ/L (98-107); CREATININE FOR GFR 0.66 MG/DL (0.55-1.02); GLOMERULAR FILTRATION RATE > 60.0 (>51); GLUCOSE, FASTING 184 MG/DL (70-105); SODIUM LEVEL 143 MEQ/L (136-145)
== END ==
LOC: SKLAB2 07:30
PROVIDERS: ATTEND Family Medicine
DX: I63.9 Cerebral infarction, unspecified (principal)

== ENCOUNTER → 2016-03-20 | Outpatient (REF) ==
[2016-03-20 08:47] LABS: ANION GAP 9 MEQ/L (8-16); BLOOD UREA NITROGEN 11 MG/DL (7-18); CALCIUM LEVEL 9.7 MG/DL (8.5-10.1); CARBON DIOXIDE LEVEL 29 MEQ/L (21-32); CHLORIDE LEVEL 104 MEQ/L (98-107); CREATININE FOR GFR 0.71 MG/DL (0.55-1.02); GLOMERULAR FILTRATION RATE > 60.0 (>51); GLUCOSE, FASTING 192 MG/DL (70-105); POTASSIUM SERUM 3.8 MEQ/L (3.5-5.1); SODIUM LEVEL 142 MEQ/L (136-145)
== END ==
LOC: SKLAB2 07:30
PROVIDERS: ATTEND Family Medicine
DX: I63.9 Cerebral infarction, unspecified (principal)

== ENCOUNTER → 2016-04-03 | Outpatient (REF) | payer MEDICARE ==
[2016-04-03 09:00] LABS: BASO % 0.4 % (0.0-1.0); EOS # 0.1 K/mm3 (0.0-0.50); EOS % 1.5 % (0.0-3.0); LARGE UNSTAINED CELL # 0.1 K/mm3 (0.0-0.4); LARGE UNSTAINED CELL % 1.6 % (0.0-4.0); LYMPH # 1.1 K/mm3 (1.5-4.5); LYMPH % 19.1 % (24.0-44.0); MEAN CORPUSCULAR HEMOGLOBIN 31.2 pg (27.0-33.0); MEAN CORPUSCULAR HGB CONC 32.9 g/dl (32.0-36.5); MEAN CORPUSCULAR VOLUME 94.8 fl (80.0-96.0); MONO # 0.3 K/mm3 (0.0-0.8); MONO % 6.4 % (0.0-5.0); NEUTROPHILS # 3.7 K/mm3 (1.8-7.7); PLATELET COUNT, AUTOMATED 208 k/mm3 (150-450); RED CELL DISTRIBUTION WIDTH 12.6 % (11.5-14.5); WHITE BLOOD COUNT 5.2 K/mm3 (4.0-10.0)
[2016-04-03 09:16] LABS: ALT/SGPT 32 U/L (12-78); ANION GAP 9 MEQ/L (8-16); BLOOD UREA NITROGEN 19 MG/DL (7-18); CALCIUM LEVEL 9.6 MG/DL (8.5-10.1); CARBON DIOXIDE LEVEL 29 MEQ/L (21-32); CHLORIDE LEVEL 107 MEQ/L (98-107); CHOLESTEROL LEVEL 176 MG/DL (<200); GLOMERULAR FILTRATION RATE > 60.0 (>51); GLUCOSE, FASTING 267 MG/DL (70-105); POTASSIUM SERUM 3.9 MEQ/L (3.5-5.1); SODIUM LEVEL 145 MEQ/L (136-145); TRIGLYCERIDES LEVEL 290 MG/DL (<150)
== END ==
LOC: SKLAB2 07:00
PROVIDERS: ATTEND Family Medicine
DX: I63.9 Cerebral infarction, unspecified (principal); Z79.899 Other long term (current) drug therapy

== ENCOUNTER → 2016-05-01 | Outpatient (REF) ==
[2016-05-01 09:00] LABS: ANION GAP 10 MEQ/L (8-16); BLOOD UREA NITROGEN 12 MG/DL (7-18); CALCIUM LEVEL 9.2 MG/DL (8.5-10.1); CARBON DIOXIDE LEVEL 29 MEQ/L (21-32); CHLORIDE LEVEL 104 MEQ/L (98-107); CREATININE FOR GFR 0.67 MG/DL (0.55-1.02); GLOMERULAR FILTRATION RATE > 60.0 (>51); GLUCOSE, FASTING 201 MG/DL (70-105); POTASSIUM SERUM 4.3 MEQ/L (3.5-5.1); SODIUM LEVEL 143 MEQ/L (136-145)
== END ==
LOC: SKLAB2 07:30
PROVIDERS: ATTEND Family Medicine
DX: I10 Essential (primary) hypertension (principal)

== ENCOUNTER → 2016-05-10 | Outpatient (REF) | payer MEDICARE ==
[2016-05-10 09:27] LABS: FREE T4 1.55 NG/DL (0.76-1.46)
== END ==
LOC: SKLAB2 07:45
PROVIDERS: ATTEND Family Medicine
DX: E03.9 Hypothyroidism, unspecified (principal)

== ENCOUNTER → 2016-05-22 | Outpatient (REF) | payer MEDICARE | LOC: SKLAB2 07:00 | PROVIDERS: ATTEND Family Medicine | DX: E03.9 Hypothyroidism, unspecified (principal) ==

== ENCOUNTER → 2016-05-29 | Outpatient (REF) | payer MEDICARE ==
[~2016-05-29] MED LIST changes: -COLA100C PO; +COLA100C3 PO
== END ==
LOC: SKLAB2 07:00
PROVIDERS: ATTEND Family Medicine
DX: I10 Essential (primary) hypertension (principal)

== ENCOUNTER → 2016-06-26 | Outpatient (REF) | payer MEDICARE ==
[2016-06-26 08:29] LABS: BASO % 0.8 % (0.0-1.0); EOS # 0.3 K/mm3 (0.0-0.50); EOS % 4.7 % (0.0-3.0); LARGE UNSTAINED CELL # 0.1 K/mm3 (0.0-0.4); LARGE UNSTAINED CELL % 1.5 % (0.0-4.0); LYMPH # 1.2 K/mm3 (1.5-4.5); LYMPH % 19.9 % (24.0-44.0); MEAN CORPUSCULAR HEMOGLOBIN 32.2 pg (27.0-33.0); MEAN CORPUSCULAR HGB CONC 34.5 g/dl (32.0-36.5); MEAN CORPUSCULAR VOLUME 93.4 fl (80.0-96.0); MONO # 0.3 K/mm3 (0.0-0.8); MONO % 5.6 % (0.0-5.0); NEUTROPHILS # 3.7 K/mm3 (1.8-7.7); NEUTROPHILS % 67.6 % (36.0-66.0); PLATELET COUNT, AUTOMATED 216 k/mm3 (150-450); RED CELL DISTRIBUTION WIDTH 13.2 % (11.5-14.5); WHITE BLOOD COUNT 5.5 K/mm3 (4.0-10.0)
[2016-06-26 09:02] LABS: ANION GAP 9 MEQ/L (8-16); BLOOD UREA NITROGEN 12 MG/DL (7-18); CALCIUM LEVEL 9.2 MG/DL (8.5-10.1); CARBON DIOXIDE LEVEL 26 MEQ/L (21-32); CHLORIDE LEVEL 107 MEQ/L (98-107); CREATININE FOR GFR 0.72 MG/DL (0.55-1.02); GLOMERULAR FILTRATION RATE > 60.0 (>51); GLUCOSE, FASTING 146 MG/DL (70-105); SODIUM LEVEL 142 MEQ/L (136-145)
[2016-06-26 09:17] LABS: POTASSIUM SERUM 4.3 MEQ/L (3.5-5.1)
== END ==
LOC: SKLAB2 07:00
PROVIDERS: ATTEND Family Medicine
DX: I10 Essential (primary) hypertension (principal); Z86.73 Personal history of transient ischemic attack (TIA), and cerebral infarction without residual deficits; Z79.899 Other long term (current) drug therapy

== ENCOUNTER → 2016-07-10 | Outpatient (REF) | payer MEDICARE ==
[2016-07-10 08:42] LABS: FREE T4 1.18 NG/DL (0.76-1.46)
== END ==
LOC: SKLAB2 09:01
PROVIDERS: ATTEND Family Medicine
DX: E03.9 Hypothyroidism, unspecified (principal)

== ENCOUNTER → 2016-07-20 | Outpatient (REF) | payer MEDICARE ==
[2016-07-20 09:50] LABS: FREE T4 1.13 NG/DL (0.76-1.46)
[2016-07-26 00:06] LABS: FREE T4 BY DIALYSIS DIRECT 1.1 ng/dL (.)
== END ==
LOC: SKLAB2 08:00
PROVIDERS: ATTEND Family Medicine
DX: E03.9 Hypothyroidism, unspecified (principal)

== ENCOUNTER → 2016-07-31 | Outpatient (REF) | payer MEDICARE ==
[2016-07-31 09:13] LABS: ANION GAP 10 MEQ/L (8-16); BLOOD UREA NITROGEN 12 MG/DL (7-18); CALCIUM LEVEL 9.8 MG/DL (8.5-10.1); CARBON DIOXIDE LEVEL 29 MEQ/L (21-32); CHLORIDE LEVEL 104 MEQ/L (98-107); CREATININE FOR GFR 0.65 MG/DL (0.55-1.02); GLOMERULAR FILTRATION RATE > 60.0 (>51); GLUCOSE, FASTING 137 MG/DL (70-105); POTASSIUM SERUM 3.9 MEQ/L (3.5-5.1); SODIUM LEVEL 143 MEQ/L (136-145)
== END ==
LOC: SKLAB2 07:00
PROVIDERS: ATTEND Family Medicine
DX: E03.9 Hypothyroidism, unspecified (principal)

== ENCOUNTER → 2016-08-28 | Outpatient (REF) | payer MEDICARE ==
[~2016-08-28] MED LIST changes: +ASPI325T24 PO; -ASPI32ECTA PO; -ATOR40TA PO; +ATOR40TA75 PO; +BACITAB PO; -BACITAB3 PO; -COLA100C3 PO; +COLA100C5 PO; -DOCU100C PO; +DOCU100C16 PO; +SENN18TA PO; -SENN1TAB4 PO; -VENL75CA PO; +VENL75CA2 PO; -VITA400C2 PO; +VITA400C7 PO
[2016-08-28 10:11] LABS: ANION GAP 11 MEQ/L (8-16); BLOOD UREA NITROGEN 10 MG/DL (7-18); CALCIUM LEVEL 9.9 MG/DL (8.5-10.1); CARBON DIOXIDE LEVEL 25 MEQ/L (21-32); CHLORIDE LEVEL 106 MEQ/L (98-107); CREATININE FOR GFR 0.64 MG/DL (0.55-1.02); GLOMERULAR FILTRATION RATE > 60.0 (>51); GLUCOSE, FASTING 225 MG/DL (70-105); POTASSIUM SERUM 4.2 MEQ/L (3.5-5.1); SODIUM LEVEL 142 MEQ/L (136-145)
== END ==
LOC: SKLAB2 08:00
PROVIDERS: ATTEND Family Medicine
DX: I10 Essential (primary) hypertension (principal); Z86.73 Personal history of transient ischemic attack (TIA), and cerebral infarction without residual deficits

== ENCOUNTER → 2016-10-02 | Outpatient (REF) | payer MEDICARE ==
[2016-10-02 09:36] LABS: BASO % 0.5 % (0.0-1.0); EOS # 0.1 K/mm3 (0.0-0.50); EOS % 1.8 % (0.0-3.0); LARGE UNSTAINED CELL # 0.1 K/mm3 (0.0-0.4); LARGE UNSTAINED CELL % 1.4 % (0.0-4.0); LYMPH # 1.2 K/mm3 (1.5-4.5); LYMPH % 17.3 % (24.0-44.0); MEAN CORPUSCULAR HEMOGLOBIN 32.4 pg (27.0-33.0); MEAN CORPUSCULAR VOLUME 95.3 fl (80.0-96.0); MONO # 0.4 K/mm3 (0.0-0.8); MONO % 5.6 % (0.0-5.0); NEUTROPHILS # 4.6 K/mm3 (1.8-7.7); NEUTROPHILS % 73.3 % (36.0-66.0); PLATELET COUNT, AUTOMATED 222 k/mm3 (150-450); RED CELL DISTRIBUTION WIDTH 12.7 % (11.5-14.5); WHITE BLOOD COUNT 6.3 K/mm3 (4.0-10.0)
[2016-10-02 09:59] LABS: ALT/SGPT 40 U/L (12-78); ANION GAP 10 MEQ/L (8-16); BLOOD UREA NITROGEN 12 MG/DL (7-18); CALCIUM LEVEL 9.4 MG/DL (8.5-10.1); CARBON DIOXIDE LEVEL 26 MEQ/L (21-32); CHLORIDE LEVEL 107 MEQ/L (98-107); CREATININE FOR GFR 0.67 MG/DL (0.55-1.02); GLOMERULAR FILTRATION RATE > 60.0 (>51); GLUCOSE, FASTING 133 MG/DL (70-105); SODIUM LEVEL 143 MEQ/L (136-145); TRIGLYCERIDES LEVEL 308 MG/DL (<150)
[2016-10-02 10:00] LABS: CHOLESTEROL LEVEL 143 MG/DL (<200)
== END ==
LOC: SKLAB2 07:00
PROVIDERS: ATTEND Family Medicine
DX: I10 Essential (primary) hypertension (principal); Z79.899 Other long term (current) drug therapy

== ENCOUNTER → 2016-10-30 | Outpatient (REF) | payer MEDICARE ==
[2016-10-30 09:04] LABS: ANION GAP 12 MEQ/L (8-16); BLOOD UREA NITROGEN 11 MG/DL (7-18); CALCIUM LEVEL 9.9 MG/DL (8.5-10.1); CARBON DIOXIDE LEVEL 27 MEQ/L (21-32); CHLORIDE LEVEL 106 MEQ/L (98-107); CREATININE FOR GFR 0.64 MG/DL (0.55-1.02); GLOMERULAR FILTRATION RATE > 60.0 (>51); GLUCOSE, FASTING 140 MG/DL (70-105); POTASSIUM SERUM 3.9 MEQ/L (3.5-5.1); SODIUM LEVEL 145 MEQ/L (136-145)
== END ==
LOC: SKLAB2 07:30
PROVIDERS: ATTEND Family Medicine
DX: I10 Essential (primary) hypertension (principal); Z86.73 Personal history of transient ischemic attack (TIA), and cerebral infarction without residual deficits

== ENCOUNTER → 2016-11-27 | Outpatient (REF) | payer MEDICARE ==
[2016-11-27 09:36] LABS: ANION GAP 10 MEQ/L (8-16); BLOOD UREA NITROGEN 13 MG/DL (7-18); CALCIUM LEVEL 9.6 MG/DL (8.5-10.1); CARBON DIOXIDE LEVEL 29 MEQ/L (21-32); CHLORIDE LEVEL 106 MEQ/L (98-107); CREATININE FOR GFR 0.65 MG/DL (0.55-1.02); GLOMERULAR FILTRATION RATE > 60.0 (>51); GLUCOSE, FASTING 146 MG/DL (70-105); POTASSIUM SERUM 3.9 MEQ/L (3.5-5.1); SODIUM LEVEL 145 MEQ/L (136-145)
== END ==
LOC: SKLAB2 07:30
PROVIDERS: ATTEND Family Medicine
DX: I63.9 Cerebral infarction, unspecified (principal)

== ENCOUNTER → 2017-01-01 | Outpatient (REF) | payer MEDICARE ==
[2017-01-01 09:28] LABS: BASO % 0.4 % (0.0-1.0); EOS # 0.2 10^3/uL (0.0-0.50); EOS % 2.9 % (0.0-3.0); IMMATURE GRANULOCYTE % 1.3 % (0-0); LYMPH % 17.5 % (24.0-44.0); MEAN CORPUSCULAR HEMOGLOBIN 32.6 pg (27.0-33.0); MEAN CORPUSCULAR HGB CONC 34.1 g/dl (32.0-36.5); MEAN CORPUSCULAR VOLUME 95.4 fl (80.0-96.0); MONO # 0.4 10^3/uL (0.0-0.8); NEUTROPHILS # 3.9 10^3/uL (1.8-7.7); NEUTROPHILS % 70.9 % (36.0-66.0); PLATELET COUNT, AUTOMATED 216 10^3/uL (150-450); RED CELL DISTRIBUTION WIDTH 12.8 % (11.5-14.5); WHITE BLOOD COUNT 5.4 10^3/uL (4.0-10.0)
[2017-01-01 15:22] LABS: ANION GAP 8 MEQ/L (8-16); BLOOD UREA NITROGEN 10 MG/DL (7-18); CALCIUM LEVEL 9.8 MG/DL (8.5-10.1); CARBON DIOXIDE LEVEL 28 MEQ/L (21-32); CHLORIDE LEVEL 106 MEQ/L (98-107); CREATININE FOR GFR 0.63 MG/DL (0.55-1.02); GLOMERULAR FILTRATION RATE > 60.0 (>51); GLUCOSE, FASTING 136 MG/DL (70-105); POTASSIUM SERUM 3.8 MEQ/L (3.5-5.1); SODIUM LEVEL 142 MEQ/L (136-145)
== END ==
LOC: SKLAB2 07:30
PROVIDERS: ATTEND Family Medicine
DX: I10 Essential (primary) hypertension (principal); Z86.73 Personal history of transient ischemic attack (TIA), and cerebral infarction without residual deficits; R73.01 Impaired fasting glucose

== ENCOUNTER → 2017-01-03 | Outpatient (REF) | payer MEDICARE | LOC: SKLAB2 10:45 | PROVIDERS: ATTEND Family Medicine | DX: R19.7 Diarrhea, unspecified (principal) ==

== ENCOUNTER → 2017-01-29 | Outpatient (REF) | payer MEDICARE ==
[2017-01-29 09:09] LABS: ANION GAP 9 MEQ/L (8-16); BLOOD UREA NITROGEN 9 MG/DL (7-18); CALCIUM LEVEL 9.5 MG/DL (8.5-10.1); CARBON DIOXIDE LEVEL 28 MEQ/L (21-32); CHLORIDE LEVEL 108 MEQ/L (98-107); CREATININE FOR GFR 0.63 MG/DL (0.55-1.02); GLOMERULAR FILTRATION RATE > 60.0 (>51); GLUCOSE, FASTING 144 MG/DL (70-105); POTASSIUM SERUM 3.8 MEQ/L (3.5-5.1); SODIUM LEVEL 145 MEQ/L (136-145)
== END ==
LOC: SKLAB2 07:30
PROVIDERS: ATTEND Family Medicine
DX: I63.9 Cerebral infarction, unspecified (principal)

== ENCOUNTER → 2017-02-26 | Outpatient (REF) | payer MEDICARE ==
[2017-02-26 08:52] LABS: ANION GAP 11 MEQ/L (8-16); BLOOD UREA NITROGEN 10 MG/DL (7-18); CARBON DIOXIDE LEVEL 25 MEQ/L (21-32); CHLORIDE LEVEL 106 MEQ/L (98-107); CREATININE FOR GFR 0.59 MG/DL (0.55-1.02); GLOMERULAR FILTRATION RATE > 60.0 (>51); GLUCOSE, FASTING 154 MG/DL (70-105); SODIUM LEVEL 142 MEQ/L (136-145)
== END ==
LOC: SKLAB2 07:30
DX: Z86.73 Personal history of transient ischemic attack (TIA), and cerebral infarction without residual deficits (principal)
CPT/HCPCS: 36415

== ENCOUNTER → 2017-04-02 | Outpatient (REF) | payer MEDICARE ==
[2017-04-02 09:17] LABS: BASO % 0.4 % (0.0-1.0); EOS # 0.1 10^3/uL (0.0-0.50); HEMATOCRIT 41.3 % (36.0-47.0); HEMOGLOBIN 14.1 g/dl (12.0-16.0); IMMATURE GRANULOCYTE % 0.8 % (0-3.0); LYMPH # 1.3 10^3/uL (1.5-4.5); LYMPH % 25.7 % (24.0-44.0); MEAN CORPUSCULAR HGB CONC 34.1 g/dl (32.0-36.5); MEAN CORPUSCULAR VOLUME 93.7 fl (80.0-96.0); MONO # 0.4 10^3/uL (0.0-0.8); MONO % 8.7 % (0.0-5.0); NEUTROPHILS # 3.1 10^3/uL (1.8-7.7); NEUTROPHILS % 62.4 % (36.0-66.0); PLATELET COUNT, AUTOMATED 238 10^3/uL (150-450); RED BLOOD COUNT 4.41 10^6/uL (4.00-5.40); RED CELL DISTRIBUTION WIDTH 12.8 % (11.5-14.5)
[2017-04-02 09:31] LABS: ESTIMATED AVERAGE GLUCOSE 157 MG/DL (60-110); HEMOGLOBIN A1c 7.1 %
[2017-04-02 10:04] LABS: ALT/SGPT 27 U/L (12-78); ANION GAP 8 MEQ/L (8-16); BLOOD UREA NITROGEN 14 MG/DL (7-18); CALCIUM LEVEL 9.2 MG/DL (8.5-10.1); CARBON DIOXIDE LEVEL 28 MEQ/L (21-32); CHLORIDE LEVEL 106 MEQ/L (98-107); CHOLESTEROL LEVEL 139 MG/DL (<200); CHOLESTEROL RISK RATIO 3.657 (<5); CREATININE FOR GFR 0.53 MG/DL (0.55-1.30); GLOMERULAR FILTRATION RATE > 60.0 (>51); GLUCOSE, FASTING 149 MG/DL (70-100); HDL CHOLESTEROL 38 MG/DL (>40); LDL CHOLESTEROL 36.8 MG/DL (<100); NON-HDL-C 101 MG/DL; POTASSIUM SERUM 3.9 MEQ/L (3.5-5.1); SODIUM LEVEL 142 MEQ/L (136-145); TRIGLYCERIDES LEVEL 321 MG/DL (<150)
== END ==
LOC: SKLAB2 08:00
DX: I10 Essential (primary) hypertension (principal); Z86.73 Personal history of transient ischemic attack (TIA), and cerebral infarction without residual deficits
CPT/HCPCS: 84460

== ENCOUNTER → 2017-04-30 | Outpatient (REF) | payer MEDICARE ==
[2017-04-30 08:56] LABS: ANION GAP 9 MEQ/L (8-16); BLOOD UREA NITROGEN 11 MG/DL (7-18); CALCIUM LEVEL 9.6 MG/DL (8.8-10.2); CARBON DIOXIDE LEVEL 27 MEQ/L (21-32); CHLORIDE LEVEL 106 MEQ/L (98-107); GLOMERULAR FILTRATION RATE > 60.0 (>45); GLUCOSE, FASTING 193 MG/DL (70-100); POTASSIUM SERUM 4.4 MEQ/L (3.5-5.1); SODIUM LEVEL 142 MEQ/L (136-145)
== END ==
LOC: SKLAB2 07:30
DX: I63.9 Cerebral infarction, unspecified (principal)
CPT/HCPCS: 36415

== ENCOUNTER → 2017-09-13 | Outpatient (REF) | payer MEDICARE ==
[2017-09-13 12:32] LABS: ANION GAP 10 MEQ/L (8-16); BLOOD UREA NITROGEN 11 MG/DL (7-18); CALCIUM LEVEL 9.6 MG/DL (8.8-10.2); CARBON DIOXIDE LEVEL 25 MEQ/L (21-32); CHLORIDE LEVEL 107 MEQ/L (98-107); CREATININE FOR GFR 0.71 MG/DL (0.55-1.30); GLOMERULAR FILTRATION RATE > 60.0 (>45); GLUCOSE, FASTING 145 MG/DL (70-100); POTASSIUM SERUM 4.1 MEQ/L (3.5-5.1); SODIUM LEVEL 142 MEQ/L (136-145)
== END ==
LOC: SKLAB2 11:08
DX: E11.9 Type 2 diabetes mellitus without complications (principal)
CPT/HCPCS: 80048

== ENCOUNTER → 2017-10-01 | Outpatient (REF) | payer MEDICARE ==
[2017-10-01 08:06] LABS: BASO % 0.5 % (0.0-1.0); EOS # 0.1 10^3/uL (0.0-0.50); EOS % 1.4 % (0.0-3.0); HEMATOCRIT 41.5 % (36.0-47.0); IMMATURE GRANULOCYTE % 1.2 % (0-3.0); LYMPH # 1.1 10^3/uL (1.5-4.5); LYMPH % 19.6 % (24.0-44.0); MEAN CORPUSCULAR HEMOGLOBIN 31.9 pg (27.0-33.0); MEAN CORPUSCULAR HGB CONC 33.7 g/dl (32.0-36.5); MEAN CORPUSCULAR VOLUME 94.5 fl (80.0-96.0); MONO # 0.4 10^3/uL (0.0-0.8); MONO % 7.6 % (0.0-5.0); NEUTROPHILS # 3.9 10^3/uL (1.8-7.7); NEUTROPHILS % 69.7 % (36.0-66.0); PLATELET COUNT, AUTOMATED 236 10^3/uL (150-450); RED BLOOD COUNT 4.39 10^6/uL (4.00-5.40); RED CELL DISTRIBUTION WIDTH 12.5 % (11.5-14.5); WHITE BLOOD COUNT 5.7 10^3/uL (4.0-10.0)
[2017-10-01 08:22] LABS: ALT/SGPT 35 U/L (12-78); CHOLESTEROL LEVEL 177 MG/DL (<200); CHOLESTEROL RISK RATIO 4.317 (<5); HDL CHOLESTEROL 41 MG/DL (>40); NON-HDL-C 136 MG/DL; TRIGLYCERIDES LEVEL 508 MG/DL (<150)
[2017-10-01 11:58] LABS: ESTIMATED AVERAGE GLUCOSE 148 MG/DL (60-110); HEMOGLOBIN A1c 6.8 %
== END ==
LOC: SKLAB2 07:00
DX: I63.9 Cerebral infarction, unspecified (principal); I10 Essential (primary) hypertension; Z79.899 Other long term (current) drug therapy
CPT/HCPCS: 84460

== ENCOUNTER → 2017-12-10 | Outpatient (REF) | payer MEDICARE ==
[2017-12-10 08:42] LABS: ANION GAP 6 MEQ/L (8-16); BLOOD UREA NITROGEN 12 MG/DL (7-18); CALCIUM LEVEL 9.2 MG/DL (8.8-10.2); CARBON DIOXIDE LEVEL 29 MEQ/L (21-32); CHLORIDE LEVEL 107 MEQ/L (98-107); GLOMERULAR FILTRATION RATE > 60.0 (>45); GLUCOSE, FASTING 142 MG/DL (70-100); POTASSIUM SERUM 4.6 MEQ/L (3.5-5.1); SODIUM LEVEL 142 MEQ/L (136-145)
== END ==
LOC: SKLAB2 07:00
DX: I10 Essential (primary) hypertension (principal)
CPT/HCPCS: 80048

== ENCOUNTER → 2017-12-31 | Outpatient (REF) | payer MEDICARE | LOC: SKLAB2 07:00 | DX: I63.9 Cerebral infarction, unspecified (principal) ==

== ENCOUNTER → 2018-04-01 | Outpatient (REF) | payer MEDICARE ==
[~2018-04-01] MED LIST changes: -AMLO10TA2 PO; +AMLO10TA5 PO; -ASPI325T24 PO; +ASPI325T25 PO; -CLON0.5T PO; +CLON0.5T8 PO; +KLOR10TA76 PO; -LOSA50TA20 PO; +LOSA50TA88 PO; -POTA10CA PO
[2018-04-01 08:07] LABS: BASO % 0.5 % (0.0-1.0); EOS # 0.1 10^3/uL (0.0-0.50); EOS % 1.8 % (0.0-3.0); HEMATOCRIT 42.3 % (36.0-47.0); HEMOGLOBIN 14.1 g/dl (12.0-15.5); LYMPH # 1.3 10^3/uL (1.5-4.5); LYMPH % 20.5 % (24.0-44.0); MEAN CORPUSCULAR HEMOGLOBIN 31.1 pg (27.0-33.0); MEAN CORPUSCULAR HGB CONC 33.3 g/dl (32.0-36.5); MEAN CORPUSCULAR VOLUME 93.4 fl (80.0-96.0); MONO # 0.5 10^3/uL (0.0-0.8); NEUTROPHILS # 4.5 10^3/uL (1.8-7.7); NEUTROPHILS % 68.4 % (36.0-66.0); PLATELET COUNT, AUTOMATED 243 10^3/uL (150-450); RED BLOOD COUNT 4.53 10^6/uL (4.00-5.40); WHITE BLOOD COUNT 6.5 10^3/uL (4.0-10.0)
[2018-04-01 08:32] LABS: CHOLESTEROL RISK RATIO 4.512 (<5)
[2018-04-01 09:40] LABS: HEMOGLOBIN A1c 6.4 %
== END ==
LOC: SKLAB2 07:00
PROVIDERS: ATTEND Family Medicine
DX: I63.9 Cerebral infarction, unspecified (principal); I10 Essential (primary) hypertension; Z79.899 Other long term (current) drug therapy

== ENCOUNTER → 2018-04-29 | Outpatient (REF) | payer MEDICARE ==
[2018-04-29 09:12] LABS: ALBUMIN 3.5 GM/DL (3.2-5.2); ALT/SGPT 23 U/L (12-78); BLOOD UREA NITROGEN 13 MG/DL (7-18); CALCIUM LEVEL 9.7 MG/DL (8.8-10.2); CARBON DIOXIDE LEVEL 29 MEQ/L (21-32); CHLORIDE LEVEL 106 MEQ/L (98-107); CREATININE FOR GFR 0.68 MG/DL (0.55-1.30); GLOMERULAR FILTRATION RATE > 60.0 (>45); GLUCOSE, FASTING 144 MG/DL (70-100); POTASSIUM SERUM 4.6 MEQ/L (3.5-5.1); SODIUM LEVEL 141 MEQ/L (136-145); TOTAL PROTEIN 6.3 GM/DL (6.4-8.2)
== END ==
LOC: SKLAB2 07:30
PROVIDERS: ATTEND Family Medicine
DX: I63.9 Cerebral infarction, unspecified (principal)

== ENCOUNTER → 2018-07-01 | Outpatient (REF) | payer MEDICARE ==
[~2018-07-01] MED LIST changes: +ASPI-255 PO; -ASPI1TAB PO; -ASPI325T25 PO; +ASPI81TA26 PO
[2018-07-01 08:06] LABS: HEMOGLOBIN A1c 7.4 %
[2018-07-01 08:31] LABS: FREE T4 1.17 NG/DL (0.76-1.46); THYROID STIMULATING HORMONE 4.22 uIU/ML (0.358-3.740); THYROXINE (T4) 10.5 UG/DL (4.5-12.0)
== END ==
LOC: SKLAB2 07:00
PROVIDERS: ATTEND Family Medicine
DX: E11.9 Type 2 diabetes mellitus without complications (principal); I10 Essential (primary) hypertension; E07.9 Disorder of thyroid, unspecified; Z86.718 Personal history of other venous thrombosis and embolism; Z87.440 Personal history of urinary (tract) infections

== ENCOUNTER → 2018-09-30 | Outpatient (REF) | payer MEDICARE ==
[2018-09-30 08:14] LABS: BASO % 0.5 % (0.0-1.0); EOS # 0.1 10^3/uL (0.0-0.50); EOS % 1.5 % (0.0-3.0); HEMOGLOBIN 13.4 g/dl (12.0-15.5); LYMPH # 1.7 10^3/uL (1.5-4.5); LYMPH % 28.5 % (24.0-44.0); MEAN CORPUSCULAR HGB CONC 33.5 g/dl (32.0-36.5); MEAN CORPUSCULAR VOLUME 95.5 fl (80.0-96.0); MONO # 0.7 10^3/uL (0.0-0.8); MONO % 11.3 % (0.0-5.0); NEUTROPHILS # 3.5 10^3/uL (1.8-7.7); PLATELET COUNT, AUTOMATED 217 10^3/uL (150-450); RED BLOOD COUNT 4.19 10^6/uL (4.00-5.40); WHITE BLOOD COUNT 6.1 10^3/uL (4.0-10.0)
[2018-09-30 08:28] LABS: ALT/SGPT 27 U/L (12-78); CHOLESTEROL LEVEL 182 MG/DL (<200); CHOLESTEROL RISK RATIO 4.789 (<5); HDL CHOLESTEROL 38 MG/DL (>40); NON-HDL-C 144 MG/DL; TRIGLYCERIDES LEVEL 464 MG/DL (<150)
[2018-09-30 10:35] LABS: HEMOGLOBIN A1c 7.5 %
== END ==
LOC: SKLAB2 07:00
PROVIDERS: ATTEND Family Medicine
DX: I10 Essential (primary) hypertension (principal); E11.9 Type 2 diabetes mellitus without complications

== ENCOUNTER → 2018-10-28 | Outpatient (REF) | payer MEDICARE ==
[~2018-10-28] MED LIST changes: +CLON0.5T2 PO; -CLON0.5T8 PO
[2018-10-28 08:21] LABS: ALBUMIN 3.4 GM/DL (3.2-5.2); ALT/SGPT 71 U/L (12-78); BLOOD UREA NITROGEN 17 MG/DL (7-18); CALCIUM LEVEL 9.9 MG/DL (8.8-10.2); CARBON DIOXIDE LEVEL 28 MEQ/L (21-32); CHLORIDE LEVEL 103 MEQ/L (98-107); GLOMERULAR FILTRATION RATE > 60.0 (>45); GLUCOSE, FASTING 135 MG/DL (70-100); POTASSIUM SERUM 4.1 MEQ/L (3.5-5.1); SODIUM LEVEL 142 MEQ/L (136-145); TOTAL PROTEIN 6.2 GM/DL (6.4-8.2)
== END ==
LOC: SKLAB2 07:00
PROVIDERS: ATTEND Family Medicine
DX: I67.9 Cerebrovascular disease, unspecified (principal)

== ENCOUNTER → 2018-11-04 | Outpatient (REF) | payer MEDICARE ==
[~2018-11-04] MED LIST changes: -CLON0.5T2 PO; +CLON0.5T8 PO
== END ==
LOC: SKLAB2 07:00
PROVIDERS: ATTEND Family Medicine
DX: E87.5 Hyperkalemia (principal)

== ENCOUNTER → 2018-11-28 | Outpatient (REF) | payer MEDICARE ==
[~2018-11-28] MED LIST changes: +CLON0.5T2 PO; -CLON0.5T8 PO
[2018-11-28 14:34] LABS: APPEARANCE, URINE CLOUDY (CLEAR); BACTERIA, URINE AUTO 3+ (NEGATIVE); BILIRUBIN, URINE AUTO NEGATIVE (NEGATIVE); BLOOD, URINE BLOOD NEGATIVE (NEGATIVE); COLOR, URINE AMBER (YELLOW); GLUCOSE, URINE (UA) AUTO 1+ mg/dL (NEGATIVE); KETONE, URINE AUTO TRACE mg/dL (NEGATIVE); LEUKOCYTE ESTERASE, URINE AUTO NEGATIVE (NEGATIVE); NITRITE, URINE AUTO NEGATIVE (NEGATIVE); PROTEIN, URINE AUTO NEGATIVE (NEGATIVE); RBC, URINE AUTO 2 /HPF (0-3); SPECIFIC GRAVITY URINE AUTO 1.024 (1.002-1.035); SQUAMOUS EPITHELIAL CELL UR AU 1 /HPF (0-6); WBC, URINE AUTO 3 /HPF (0-3)
[2018-11-28 14:47] LABS: HEMATOCRIT 40.1 % (36.0-47.0); HEMOGLOBIN 13.8 g/dl (12.0-15.5); MEAN CORPUSCULAR HEMOGLOBIN 33.1 pg (27.0-33.0); MEAN CORPUSCULAR HGB CONC 34.4 g/dl (32.0-36.5); MEAN CORPUSCULAR VOLUME 96.2 fl (80.0-96.0); PLATELET COUNT, AUTOMATED 231 10^3/uL (150-450); RED BLOOD COUNT 4.17 10^6/uL (4.00-5.40); WHITE BLOOD COUNT 9.3 10^3/uL (4.0-10.0)
[2018-11-28 15:15] LABS: ALBUMIN 3.2 GM/DL (3.2-5.2); ALT/SGPT 54 U/L (12-78); BILIRUBIN,TOTAL 0.9 MG/DL (0.2-1.0); BLOOD UREA NITROGEN 15 MG/DL (7-18); CALCIUM LEVEL 10.1 MG/DL (8.8-10.2); CARBON DIOXIDE LEVEL 26 MEQ/L (21-32); CHLORIDE LEVEL 108 MEQ/L (98-107); CREATININE FOR GFR 0.81 MG/DL (0.55-1.30); GLOMERULAR FILTRATION RATE > 60.0 (>45); GLUCOSE, FASTING 170 MG/DL (70-100); POTASSIUM SERUM 4.9 MEQ/L (3.5-5.1); SODIUM LEVEL 142 MEQ/L (136-145); TOTAL PROTEIN 6.2 GM/DL (6.4-8.2)
== END ==
LOC: SKLAB2 12:13
PROVIDERS: ATTEND Family Medicine
DX: M62.81 Muscle weakness (generalized) (principal); Z79.899 Other long term (current) drug therapy

== ENCOUNTER → 2018-12-30 | Outpatient (REF) | payer MEDICARE ==
[~2018-12-30] MED LIST changes: -CLON0.5T2 PO; +CLON0.5T8 PO
[2018-12-30 12:40] LABS: CHOLESTEROL LEVEL 216 MG/DL (<200); CHOLESTEROL RISK RATIO 4.909 (<5); FREE T4 1.04 NG/DL (0.76-1.46); HDL CHOLESTEROL 44 MG/DL (>40); NON-HDL-C 172 MG/DL; TRIGLYCERIDES LEVEL 498 MG/DL (<150)
[2018-12-30 13:57] LABS: HEMOGLOBIN A1c 7.7 %
== END ==
LOC: SKLAB2 11:30
PROVIDERS: ATTEND Family Medicine
DX: E03.9 Hypothyroidism, unspecified (principal); I63.9 Cerebral infarction, unspecified; Z79.899 Other long term (current) drug therapy

== ENCOUNTER → 2019-01-13 | Outpatient (REF) | payer MEDICARE ==
[~2019-01-13] MED LIST changes: +CLON0.5T2 PO; -CLON0.5T8 PO
[2019-01-13 11:37] LABS: HEMATOCRIT 43.5 % (36.0-47.0); HEMOGLOBIN 13.8 g/dl (12.0-15.5); MEAN CORPUSCULAR HEMOGLOBIN 32.1 pg (27.0-33.0); MEAN CORPUSCULAR HGB CONC 31.7 g/dl (32.0-36.5); MEAN CORPUSCULAR VOLUME 101.2 fl (80.0-96.0); PLATELET COUNT, AUTOMATED 218 10^3/uL (150-450); WHITE BLOOD COUNT 7.8 10^3/uL (4.0-10.0)
[2019-01-13 12:14] LABS: CALCIUM LEVEL 10.1 MG/DL (8.8-10.2); CREATININE FOR GFR 1.11 MG/DL (0.55-1.30); GLOMERULAR FILTRATION RATE 53.2 (>45); POTASSIUM SERUM 4.8 MEQ/L (3.5-5.1)
== END ==
LOC: SKLAB2 10:32
PROVIDERS: ATTEND Family Medicine
DX: R53.83 Other fatigue (principal)

== ENCOUNTER → 2019-01-14 | Outpatient (REF) | payer MEDICARE ==
[~2019-01-14] MED LIST changes: -CLON0.5T2 PO; +CLON0.5T8 PO
--- NOTE | 2019-01-14 13:59 | REP ---
Clinical: Shortness of breath. Technique: Two portable semiupright views of the chest. Comparison: 12/05/2015 Findings: Examination is limited by technique, positioning, and underpenetration. The mediastinum and cardiac silhouette are grossly normal/stable. Lung camacho demonstrate chronic appearing changes without focal consolidation, obvious effusion, or pneumothorax. Impression: Chronic stable changes. No obvious acute process. Electronically Signed by Juvenal Saleh MD 01/14/2019 01:50 P
[2019-01-14 21:49] LABS: APPEARANCE, URINE TURBID (CLEAR); BACTERIA, URINE AUTO 3+ (NEGATIVE); BILIRUBIN, URINE AUTO NEGATIVE (NEGATIVE); BLOOD, URINE BLOOD NEGATIVE (NEGATIVE); COLOR, URINE YELLOW (YELLOW); GLUCOSE, URINE (UA) AUTO 3+ mg/dL (NEGATIVE); KETONE, URINE AUTO NEGATIVE (NEGATIVE); LEUKOCYTE ESTERASE, URINE AUTO 2+ (NEGATIVE); NITRITE, URINE AUTO NEGATIVE (NEGATIVE); PROTEIN, URINE AUTO 1+ mg/dL (NEGATIVE); RBC, URINE AUTO 5 /HPF (0-3); SPECIFIC GRAVITY URINE AUTO 1.024 (1.002-1.035); SQUAMOUS EPITHELIAL CELL UR AU 6 /HPF (0-6); UROBILINOGEN, URINE AUTO 0.2 mg/dL (0.0-2.0); WBC, URINE AUTO 100 /HPF (0-3)
== END ==
LOC: SKLAB2 11:33
PROVIDERS: ATTEND Family Medicine
DX: R06.02 Shortness of breath (principal); N17.9 Acute kidney failure, unspecified

== ENCOUNTER → 2019-01-14 | Outpatient (REF) | payer MEDICARE ==
[2019-01-14 08:07] LABS: HEMOGLOBIN 13.5 g/dl (12.0-15.5); MEAN CORPUSCULAR HEMOGLOBIN 31.8 pg (27.0-33.0); MEAN CORPUSCULAR HGB CONC 32.1 g/dl (32.0-36.5); MEAN CORPUSCULAR VOLUME 99.1 fl (80.0-96.0); PLATELET COUNT, AUTOMATED 201 10^3/uL (150-450); RED BLOOD COUNT 4.24 10^6/uL (4.00-5.40); WHITE BLOOD COUNT 8.5 10^3/uL (4.0-10.0)
[2019-01-14 08:31] LABS: BLOOD UREA NITROGEN 22 MG/DL (7-18); CALCIUM LEVEL 9.7 MG/DL (8.8-10.2); CARBON DIOXIDE LEVEL 28 MEQ/L (21-32); CHLORIDE LEVEL 106 MEQ/L (98-107); CREATININE FOR GFR 0.86 MG/DL (0.55-1.30); GLOMERULAR FILTRATION RATE > 60.0 (>45); GLUCOSE, FASTING 259 MG/DL (70-100); POTASSIUM SERUM 4.1 MEQ/L (3.5-5.1); SODIUM LEVEL 141 MEQ/L (136-145)
== END ==
LOC: SKLAB2 07:00
PROVIDERS: ATTEND Family Medicine
DX: N17.9 Acute kidney failure, unspecified (principal)

== ENCOUNTER → 2019-01-15 | Outpatient (REF) | payer MEDICARE ==
[~2019-01-15] MED LIST changes: +CLON0.5T2 PO; -CLON0.5T8 PO
== END ==
LOC: SKLAB2 16:01
PROVIDERS: ATTEND Family Medicine
DX: R53.83 Other fatigue (principal)

== ENCOUNTER → 2019-01-19 | Outpatient (REF) | payer MEDICARE ==
[2019-01-19 12:02] LABS: APPEARANCE, URINE CLEAR (CLEAR); BACTERIA, URINE AUTO 1+ (NEGATIVE); BILIRUBIN, URINE AUTO NEGATIVE (NEGATIVE); BLOOD, URINE BLOOD NEGATIVE (NEGATIVE); COLOR, URINE YELLOW (YELLOW); GLUCOSE, URINE (UA) AUTO 3+ mg/dL (NEGATIVE); KETONE, URINE AUTO NEGATIVE (NEGATIVE); LEUKOCYTE ESTERASE, URINE AUTO TRACE (NEGATIVE); MUCUS, URINE SMALL (NEGATIVE); NITRITE, URINE AUTO NEGATIVE (NEGATIVE); PROTEIN, URINE AUTO NEGATIVE (NEGATIVE); RBC, URINE AUTO 6 /HPF (0-3); SPECIFIC GRAVITY URINE AUTO 1.012 (1.002-1.035); SQUAMOUS EPITHELIAL CELL UR AU 4 /HPF (0-6); UROBILINOGEN, URINE AUTO 0.2 mg/dL (0.0-2.0); WBC, URINE AUTO 2 /HPF (0-3)
== END ==
LOC: SKLAB2 11:01
PROVIDERS: ATTEND Family Medicine
DX: R82.90 Unspecified abnormal findings in urine (principal)

== ENCOUNTER → 2019-01-21 | Outpatient (REF) | payer MEDICARE ==
[2019-01-21 13:35] LABS: BASO % 0.3 % (0.0-1.0); EOS # 0.1 10^3/uL (0.0-0.5); EOS % 0.9 % (0.0-3.0); HEMATOCRIT 39.2 % (36.0-47.0); HEMOGLOBIN 13.1 g/dl (12.0-15.5); LYMPH # 1.1 10^3/uL (1.5-5.0); LYMPH % 11.6 % (24.0-44.0); MEAN CORPUSCULAR HEMOGLOBIN 31.6 pg (27.0-33.0); MEAN CORPUSCULAR HGB CONC 33.4 g/dl (32.0-36.5); MEAN CORPUSCULAR VOLUME 94.7 fl (80.0-96.0); MONO # 0.5 10^3/uL (0.0-0.8); MONO % 5.2 % (0.0-5.0); NEUTROPHILS # 7.4 10^3/uL (1.5-8.5); NEUTROPHILS % 79.9 % (36.0-66.0); PLATELET COUNT, AUTOMATED 293 10^3/uL (150-450); RED BLOOD COUNT 4.14 10^6/uL (4.00-5.40); WHITE BLOOD COUNT 9.2 10^3/uL (4.0-10.0)
[2019-01-21 14:15] LABS: ALBUMIN 3.1 GM/DL (3.2-5.2); ALT/SGPT 27 U/L (12-78); BILIRUBIN,TOTAL 0.8 MG/DL (0.2-1.0); BLOOD UREA NITROGEN 18 MG/DL (7-18); CALCIUM LEVEL 9.7 MG/DL (8.8-10.2); CARBON DIOXIDE LEVEL 28 MEQ/L (21-32); CHLORIDE LEVEL 95 MEQ/L (98-107); CREATININE FOR GFR 0.81 MG/DL (0.55-1.30); GLOMERULAR FILTRATION RATE > 60.0 (>45); GLUCOSE, FASTING 382 MG/DL (70-100); POTASSIUM SERUM 4.7 MEQ/L (3.5-5.1); SODIUM LEVEL 131 MEQ/L (136-145); TOTAL PROTEIN 6.9 GM/DL (6.4-8.2)
== END ==
LOC: SKLAB2 07:00
PROVIDERS: ATTEND Family Medicine
DX: Z87.440 Personal history of urinary (tract) infections (principal)

== ENCOUNTER → 2019-01-30 | Outpatient (REF) | payer MEDICARE ==
[2019-01-30 08:25] LABS: BLOOD UREA NITROGEN 11 MG/DL (7-18); CALCIUM LEVEL 9.6 MG/DL (8.8-10.2); CARBON DIOXIDE LEVEL 26 MEQ/L (21-32); CHLORIDE LEVEL 105 MEQ/L (98-107); CREATININE FOR GFR 0.76 MG/DL (0.55-1.30); GLOMERULAR FILTRATION RATE > 60.0 (>45); GLUCOSE, FASTING 198 MG/DL (70-100); POTASSIUM SERUM 3.9 MEQ/L (3.5-5.1); SODIUM LEVEL 138 MEQ/L (136-145)
== END ==
LOC: SKLAB2 07:00
PROVIDERS: ATTEND Family Medicine
DX: R60.0 Localized edema (principal)

== ENCOUNTER → 2019-02-17 | Outpatient (REF) | payer MEDICARE ==
[2019-02-17 08:29] LABS: BLOOD UREA NITROGEN 16 MG/DL (7-18); CALCIUM LEVEL 9.1 MG/DL (8.8-10.2); CARBON DIOXIDE LEVEL 26 MEQ/L (21-32); CHLORIDE LEVEL 104 MEQ/L (98-107); CREATININE FOR GFR 0.72 MG/DL (0.55-1.30); GLOMERULAR FILTRATION RATE > 60.0 (>45); GLUCOSE, FASTING 117 MG/DL (70-100); POTASSIUM SERUM 3.7 MEQ/L (3.5-5.1); SODIUM LEVEL 140 MEQ/L (136-145)
== END ==
LOC: SKLAB2 07:00
PROVIDERS: ATTEND Family Medicine
DX: R60.9 Edema, unspecified (principal)

== ENCOUNTER → 2019-03-31 | Outpatient (REF) | payer MEDICARE ==
[2019-03-31 10:51] LABS: BASO % 0.3 % (0.0-1.0); EOS # 0.1 10^3/uL (0.0-0.5); EOS % 0.8 % (0.0-3.0); HEMOGLOBIN 13.4 g/dl (12.0-15.5); LYMPH # 1.2 10^3/uL (1.5-5.0); MEAN CORPUSCULAR HGB CONC 33.5 g/dl (32.0-36.5); MEAN CORPUSCULAR VOLUME 95.5 fl (80.0-96.0); MONO # 0.5 10^3/uL (0.0-0.8); MONO % 6.9 % (0.0-5.0); NEUTROPHILS # 4.8 10^3/uL (1.5-8.5); NEUTROPHILS % 73.1 % (36.0-66.0); PLATELET COUNT, AUTOMATED 269 10^3/uL (150-450); RED BLOOD COUNT 4.19 10^6/uL (4.00-5.40); WHITE BLOOD COUNT 6.5 10^3/uL (4.0-10.0)
[2019-03-31 11:20] LABS: ALBUMIN 3.4 GM/DL (3.2-5.2); ALT/SGPT 29 U/L (12-78); BILIRUBIN,TOTAL 0.8 MG/DL (0.2-1.0); BLOOD UREA NITROGEN 14 MG/DL (7-18); CALCIUM LEVEL 9.9 MG/DL (8.8-10.2); CARBON DIOXIDE LEVEL 31 MEQ/L (21-32); CHLORIDE LEVEL 103 MEQ/L (98-107); CHOLESTEROL LEVEL 175 MG/DL (<200); CHOLESTEROL RISK RATIO 5.303 (<5); CREATININE FOR GFR 0.87 MG/DL (0.55-1.30); GLOMERULAR FILTRATION RATE > 60.0 (>45); GLUCOSE, FASTING 282 MG/DL (70-100); HDL CHOLESTEROL 33 MG/DL (>40); LDL CHOLESTEROL 67 MG/DL (<100); NON-HDL-C 142 MG/DL; POTASSIUM SERUM 4.9 MEQ/L (3.5-5.1); SODIUM LEVEL 142 MEQ/L (136-145); TOTAL PROTEIN 6.4 GM/DL (6.4-8.2); TRIGLYCERIDES LEVEL 375 MG/DL (<150)
== END ==
LOC: SKLAB2 10:00
PROVIDERS: ATTEND Family Medicine
DX: I10 Essential (primary) hypertension (principal)

== ENCOUNTER → 2019-06-03 | Outpatient (REF) | payer MEDICARE ==
[2019-06-03 08:33] LABS: ALBUMIN 3.2 GM/DL (3.2-5.2); ALT/SGPT 28 U/L (12-78); BLOOD UREA NITROGEN 15 MG/DL (7-18); CALCIUM LEVEL 9.1 MG/DL (8.8-10.2); CARBON DIOXIDE LEVEL 26 MEQ/L (21-32); CHLORIDE LEVEL 104 MEQ/L (98-107); CREATININE FOR GFR 0.79 MG/DL (0.55-1.30); GLOMERULAR FILTRATION RATE > 60.0 (>45); GLUCOSE, FASTING 161 MG/DL (70-100); POTASSIUM SERUM 4.3 MEQ/L (3.5-5.1); SODIUM LEVEL 140 MEQ/L (136-145); TOTAL PROTEIN 6.3 GM/DL (6.4-8.2)
== END ==
LOC: SKLAB2 07:00
PROVIDERS: ATTEND Family Medicine
DX: I63.9 Cerebral infarction, unspecified (principal)

== ENCOUNTER → 2019-07-01 | Outpatient (REF) | payer MEDICARE ==
[~2019-07-01] MED LIST changes: -MAPA325T2 PO; +MAPA325T8 PO
[2019-07-01 09:24] LABS: FREE T4 1.2 NG/DL (0.76-1.46); THYROID STIMULATING HORMONE 15.7 uIU/ML (0.358-3.740); THYROXINE (T4) 10.3 UG/DL (4.5-12.0)
[2019-07-01 09:47] LABS: HEMOGLOBIN A1c 7.2 %
== END ==
LOC: SKLAB2 07:30
PROVIDERS: ATTEND Family Medicine
DX: E03.9 Hypothyroidism, unspecified (principal); E11.9 Type 2 diabetes mellitus without complications

== ENCOUNTER → 2019-08-05 | Outpatient (REF) | payer MEDICARE | LOC: SKLAB2 10:24 | PROVIDERS: ATTEND Family Medicine | DX: E03.9 Hypothyroidism, unspecified (principal) ==

== ENCOUNTER → 2019-09-30 | Outpatient (REF) | payer MEDICARE ==
[~2019-09-30] MED LIST changes: +ACET650S3 PR; +ALBU83IN NEB; -AMLO10TA5 PO; +AMLO1TAB25 PO; +APAP325T4 PO; +ATIV1TAB10 PO; +ATOR80TA59 PO; +BISA10SU27 PR; +CYMB1CAP5 PO; +DOXY100C PO; +ECOT81TA5 PO; +ELIQ5TAB PO; +ENEMENE PR; +ENSUMIS6 PO; +HYOS125TA PO; +IPRA0.00 NEB; +LEVA750T7 PO; +LEVO175T2 PO; +LOSA100T50 PO; +METF-839 PO; +MILKSUS3 PO; +MIRA3350 PO; +MORP20SO3 PO; +OCEA0.654; +POTA1TAB14 PO; +VALA500T5 PO
[2019-12-09 08:43] LABS: BASO % 0.4 % (0.0-1.0); EOS # 0.1 10^3/uL (0.0-0.5); EOS % 0.9 % (0.0-3.0); HEMATOCRIT 40.1 % (36.0-47.0); HEMOGLOBIN 13.4 g/dl (12.0-15.5); LYMPH # 1.1 10^3/uL (1.5-5.0); MEAN CORPUSCULAR HEMOGLOBIN 32.4 pg (27.0-33.0); MEAN CORPUSCULAR HGB CONC 33.4 g/dl (32.0-36.5); MEAN CORPUSCULAR VOLUME 96.9 fl (80.0-96.0); MONO # 0.4 10^3/uL (0.0-0.8); MONO % 6.4 % (0.0-5.0); NEUTROPHILS # 4.1 10^3/uL (1.5-8.5); NEUTROPHILS % 72.6 % (36.0-66.0); PLATELET COUNT, AUTOMATED 232 10^3/uL (150-450); RED BLOOD COUNT 4.14 10^6/uL (4.00-5.40); WHITE BLOOD COUNT 5.6 10^3/uL (4.0-10.0)
[2019-12-27 07:54] LABS: CHOLESTEROL RISK RATIO 4.076 (<5); HEMOGLOBIN A1c 6.5 %
== END ==
LOC: SKLAB2 15:35
DX: E03.9 Hypothyroidism, unspecified (principal); I10 Essential (primary) hypertension

== ENCOUNTER → 2019-10-03 | Outpatient (REF) | payer MEDICARE | LOC: CANPREREF → SKLAB2 12:38 | DX: R41.82 Altered mental status, unspecified (principal) ==

== ENCOUNTER → 2019-10-03 | Outpatient (REF) | payer MEDICARE ==
[2019-12-13 10:34] LABS: HEMATOCRIT 42.8 % (36.0-47.0); HEMOGLOBIN 14.1 g/dl (12.0-15.5); MEAN CORPUSCULAR HEMOGLOBIN 32.3 pg (27.0-33.0); MEAN CORPUSCULAR HGB CONC 32.9 g/dl (32.0-36.5); MEAN CORPUSCULAR VOLUME 98.2 fl (80.0-96.0); PLATELET COUNT, AUTOMATED 266 10^3/uL (150-450); RED BLOOD COUNT 4.36 10^6/uL (4.00-5.40); WHITE BLOOD COUNT 8.9 10^3/uL (4.0-10.0)
[2019-12-27 06:46] LABS: ALBUMIN 3.8 GM/DL (3.2-5.2); ALT/SGPT 84 U/L (12-78); BILIRUBIN,TOTAL 1.3 MG/DL (0.2-1.0); BLOOD UREA NITROGEN 18 MG/DL (7-18); CALCIUM LEVEL 10.1 MG/DL (8.8-10.2); CARBON DIOXIDE LEVEL 30 MEQ/L (21-32); CHLORIDE LEVEL 103 MEQ/L (98-107); CREATININE FOR GFR 0.83 MG/DL (0.55-1.30); GLOMERULAR FILTRATION RATE > 60.0 (>45); GLUCOSE, FASTING 179 MG/DL (70-100); SODIUM LEVEL 140 MEQ/L (136-145); TOTAL PROTEIN 7.5 GM/DL (6.4-8.2)
== END ==
LOC: SKLAB2 12:38
DX: R41.82 Altered mental status, unspecified (principal)

== ENCOUNTER → 2019-10-10 | Outpatient (REF) | payer MEDICARE ==
[2019-10-10 14:43] LABS: HEMOGLOBIN 13.6 g/dl (12.0-15.5); MEAN CORPUSCULAR HEMOGLOBIN 32.2 pg (27.0-33.0); MEAN CORPUSCULAR HGB CONC 32.4 g/dl (32.0-36.5); MEAN CORPUSCULAR VOLUME 99.3 fl (80.0-96.0); PLATELET COUNT, AUTOMATED 383 10^3/uL (150-450); RED BLOOD COUNT 4.23 10^6/uL (4.00-5.40); WHITE BLOOD COUNT 9.4 10^3/uL (4.0-10.0)
[2019-10-10 15:11] LABS: ALBUMIN 3.2 GM/DL (3.2-5.2); BILIRUBIN,TOTAL 0.6 MG/DL (0.2-1.0); CALCIUM LEVEL 10.1 MG/DL (8.8-10.2); GLOMERULAR FILTRATION RATE 59.8 (>45); POTASSIUM SERUM 3.3 MEQ/L (3.5-5.1)
--- NOTE | 2019-11-14 08:09 | REP ---
PORTABLE CHEST, SINGLE AP VIEW WITH THE PATIENT UPRIGHT Delay in reporting results from [employer] system malfunction from malware/ [email or web address]. COMPARISON: 01/14/2019, 12/05/2015, and 11/23/2015. FINDINGS: The lung camacho are clear. The cardiac size is normal. The marina, mediastinum, and skeletal structures are unremarkable. There is a left shoulder arthroplasty, unchanged. There is a vena cava filter in the upper abdomen. IMPRESSION: There are no acute cardiopulmonary findings. MTDD
== END ==
LOC: SKLAB2 09:00
DX: R94.5 Abnormal results of liver function studies (principal)

== ENCOUNTER → 2019-10-12 | Outpatient (REF) | payer MEDICARE ==
[2019-10-12 14:31] LABS: BLOOD UREA NITROGEN 18 MG/DL (7-18); CALCIUM LEVEL 9.5 MG/DL (8.8-10.2); CARBON DIOXIDE LEVEL 31 MEQ/L (21-32); CHLORIDE LEVEL 113 MEQ/L (98-107); CREATININE FOR GFR 0.75 MG/DL (0.55-1.30); GLOMERULAR FILTRATION RATE > 60.0 (>45); GLUCOSE, FASTING 137 MG/DL (70-100); POTASSIUM SERUM 2.7 MEQ/L (3.5-5.1); SODIUM LEVEL 148 MEQ/L (136-145)
== END ==
LOC: SKLAB2 11:03
PROVIDERS: ATTEND Nurse Practitioner Gerontology
DX: J20.9 Acute bronchitis, unspecified (principal)

== ENCOUNTER → 2019-10-13 | Outpatient (CLI) | payer MEDICARE | LOC: M RAD 15:49 | PROVIDERS: ATTEND Nurse Practitioner | DX: R50.9 Fever, unspecified (principal) ==

== ENCOUNTER → 2019-10-13 | Outpatient (REF) | payer MEDICARE ==
[2019-10-13 13:33] LABS: BLOOD UREA NITROGEN 18 MG/DL (7-18); CALCIUM LEVEL 9.2 MG/DL (8.8-10.2); CARBON DIOXIDE LEVEL 29 MEQ/L (21-32); CHLORIDE LEVEL 115 MEQ/L (98-107); CREATININE FOR GFR 0.73 MG/DL (0.55-1.30); GLOMERULAR FILTRATION RATE > 60.0 (>45); GLUCOSE, FASTING 125 MG/DL (70-100); POTASSIUM SERUM 3.1 MEQ/L (3.5-5.1); SODIUM LEVEL 151 MEQ/L (136-145)
--- NOTE | 2019-11-14 08:13 | REP ---
CHEST X-RAY TECHNIQUE: AP and lateral. COMPARISON: 10/10/2019. FINDINGS: Left lower lobe/retrocardiac consolidation consistent with pneumonia and atelectasis. No effusion. No pneumothorax. The remainder of the lung camacho are clear. Cardiac silhouette is normal. Skeletal structures demonstrate osteopenia and degenerative changes along with left shoulder replacement. IMPRESSION: Left lower lobe consolidation consistent with pneumonia. Follow-up to resolution. LUIS M
== END ==
LOC: SKLAB2 07:03
DX: E87.6 Hypokalemia (principal)
CPT/HCPCS: 71046; 80048; U0003

== ENCOUNTER → 2019-10-14 | Outpatient (REF) | payer MEDICARE ==
[2019-10-14 12:45] LABS: HEMATOCRIT 36.7 % (36.0-47.0); MEAN CORPUSCULAR HEMOGLOBIN 32.4 pg (27.0-33.0); MEAN CORPUSCULAR HGB CONC 32.7 g/dl (32.0-36.5); MEAN CORPUSCULAR VOLUME 99.2 fl (80.0-96.0); PLATELET COUNT, AUTOMATED 258 10^3/uL (150-450); WHITE BLOOD COUNT 10.2 10^3/uL (4.0-10.0)
[2019-10-14 13:09] LABS: ALBUMIN 2.3 GM/DL (3.2-5.2); ALT/SGPT 8 U/L (12-78); BILIRUBIN,TOTAL 0.5 MG/DL (0.2-1.0); BLOOD UREA NITROGEN 13 MG/DL (7-18); CALCIUM LEVEL 8.9 MG/DL (8.8-10.2); CARBON DIOXIDE LEVEL 31 MEQ/L (21-32); CHLORIDE LEVEL 115 MEQ/L (98-107); GLOMERULAR FILTRATION RATE > 60.0 (>45); GLUCOSE, FASTING 201 MG/DL (70-100); POTASSIUM SERUM 2.7 MEQ/L (3.5-5.1); SODIUM LEVEL 149 MEQ/L (136-145); TOTAL PROTEIN 5.5 GM/DL (6.4-8.2)
[2019-10-14 16:03] LABS: NT-PRO BNP 425 PG/ML (<125)
== END ==
LOC: SKLAB2 07:00
DX: R50.9 Fever, unspecified (principal)
CPT/HCPCS: 80053; 83880; 85027; U0002

== ENCOUNTER → 2019-10-15 | Outpatient (REF) | payer MEDICARE ==
[2019-10-15 09:19] LABS: BLOOD UREA NITROGEN 13 MG/DL (7-18); CALCIUM LEVEL 9.3 MG/DL (8.8-10.2); CARBON DIOXIDE LEVEL 30 MEQ/L (21-32); CHLORIDE LEVEL 119 MEQ/L (98-107); CREATININE FOR GFR 0.62 MG/DL (0.55-1.30); GLOMERULAR FILTRATION RATE > 60.0 (>45); GLUCOSE, FASTING 109 MG/DL (70-100); SODIUM LEVEL 154 MEQ/L (136-145)
== END ==
LOC: SKLAB2 07:30
DX: E87.6 Hypokalemia (principal)

== ENCOUNTER → 2019-10-16 | Outpatient (REF) | payer MEDICARE ==
[2019-10-16 10:57] LABS: HEMATOCRIT 35.8 % (36.0-47.0); HEMOGLOBIN 11.3 g/dl (12.0-15.5); MEAN CORPUSCULAR HEMOGLOBIN 31.5 pg (27.0-33.0); MEAN CORPUSCULAR HGB CONC 31.6 g/dl (32.0-36.5); MEAN CORPUSCULAR VOLUME 99.7 fl (80.0-96.0); PLATELET COUNT, AUTOMATED 210 10^3/uL (150-450); RED BLOOD COUNT 3.59 10^6/uL (4.00-5.40); WHITE BLOOD COUNT 11.5 10^3/uL (4.0-10.0)
[2019-10-16 11:10] LABS: BLOOD UREA NITROGEN 9 MG/DL (7-18); CALCIUM LEVEL 8.6 MG/DL (8.8-10.2); CARBON DIOXIDE LEVEL 29 MEQ/L (21-32); CHLORIDE LEVEL 112 MEQ/L (98-107); CREATININE FOR GFR 0.46 MG/DL (0.55-1.30); GLOMERULAR FILTRATION RATE > 60.0 (>45); GLUCOSE, FASTING 116 MG/DL (70-100); POTASSIUM SERUM 2.9 MEQ/L (3.5-5.1); SODIUM LEVEL 147 MEQ/L (136-145)
== END ==
LOC: SKLAB2 07:30
DX: E87.1 Hypo-osmolality and hyponatremia (principal)

== ENCOUNTER → 2019-10-17 | Outpatient (REF) | payer MEDICARE ==
--- NOTE | 2019-10-17 13:43 | REPVR ---
PROCEDURE INFORMATION: Exam: XR Chest, 2 Views Exam date and time: 10/17/2019 1:32 PM Age: 64 years old Clinical indication: Shortness of breath; Additional info: SOB / pneumonia TECHNIQUE: Imaging protocol: XR of the chest Views: 2 views. COMPARISON: 1. CR Chest, 2 view PA, Lat 10/13/2019 4:08 PM 2. MD - Chest, 1 view 10/10/2019 11:55:25 AM FINDINGS: Lungs: There is increased mild left basilar atelectasis versus pneumonia. Pleural space: Minimal pleural fluid on the left. No pneumothorax. Heart/Mediastinum: Unremarkable. No cardiomegaly. Vasculature: Aorta is mildly tortuous. Bones/joints: There is a left total shoulder arthroplasty, partially included. No acute fracture. Dextroconvex thoracic scoliosis, but this may be positional in nature IMPRESSION: 1. Increased mild left basilar atelectasis versus pneumonia. Electronically signed by: Deborah Comer On 10/17/2019 13:43:00 PM
== END ==
LOC: SKLAB2 13:13
DX: R06.02 Shortness of breath (principal)

== ENCOUNTER → 2019-10-17 | Outpatient (REF) | payer MEDICARE ==
[2019-10-17 13:25] LABS: HEMATOCRIT 38.1 % (36.0-47.0); HEMOGLOBIN 12.5 g/dl (12.0-15.5); MEAN CORPUSCULAR HEMOGLOBIN 32.1 pg (27.0-33.0); MEAN CORPUSCULAR HGB CONC 32.8 g/dl (32.0-36.5); MEAN CORPUSCULAR VOLUME 97.7 fl (80.0-96.0); PLATELET COUNT, AUTOMATED 265 10^3/uL (150-450); WHITE BLOOD COUNT 10.7 10^3/uL (4.0-10.0)
[2019-10-17 13:53] LABS: BLOOD UREA NITROGEN 12 MG/DL (7-18); CALCIUM LEVEL 9.2 MG/DL (8.8-10.2); CARBON DIOXIDE LEVEL 29 MEQ/L (21-32); CHLORIDE LEVEL 112 MEQ/L (98-107); GLOMERULAR FILTRATION RATE > 60.0 (>45); GLUCOSE, FASTING 135 MG/DL (70-100); POTASSIUM SERUM 3.3 MEQ/L (3.5-5.1); SODIUM LEVEL 148 MEQ/L (136-145)
== END ==
LOC: SKLAB2 07:12
DX: E87.6 Hypokalemia (principal)

== ENCOUNTER 2019-10-19 01:09 | Inpatient (IN) | payer MEDICARE ==
[~2019-10-19] VITALS: Ht 152.4 cm; Wt 64.0 kg
[~2019-10-19 01:09] MED LIST changes: -ACET650S3 PR; -ALBU83IN NEB; -APAP325T4 PO; -ATIV1TAB10 PO; -ATOR80TA59 PO; -BISA10SU27 PR; -CYMB1CAP5 PO; -DOXY100C PO; -ECOT81TA5 PO; -ELIQ5TAB PO; -ENEMENE PR; -ENSUMIS6 PO; -HYOS125TA PO; -IPRA0.00 NEB; -LEVA750T7 PO; -LEVO175T2 PO; -LOSA100T50 PO; -METF-839 PO; -MILKSUS3 PO; -MIRA3350 PO; -MORP20SO3 PO; -OCEA0.654; -POTA1TAB14 PO; -VALA500T5 PO
[2019-10-19] MEDS ORDERED: PIPERACILLIN/TAZOBACTAM SOD 3.375 GM in D5W MINI-BAG PLUS 50 ML IV ONE (01:15)
[2019-10-19] MEDS ORDERED: NS 1,000 ML IV ONE (01:15)
[2019-10-19] MEDS ORDERED: IPRATROPIUM 0.5MG/ALBUTEROL 2.5MG INH SOL UD 3ML (DUONEB) NEB ONE (01:30)
[2019-10-19] MEDS ORDERED: ACETAMINOPHEN 650 MG SUPP PR ONE (01:30)
[2019-10-19 01:35] LABS: BASO # 0.1 10^3/uL (0.0-0.2); BASO % 0.2 % (0.0-1.0); HEMATOCRIT 42.6 % (36.0-47.0); HEMOGLOBIN 13.8 g/dl (12.0-15.5); LYMPH # 0.4 10^3/uL (1.5-5.0); LYMPH % 1.6 % (24.0-44.0); MEAN CORPUSCULAR HEMOGLOBIN 31.4 pg (27.0-33.0); MEAN CORPUSCULAR HGB CONC 32.4 g/dl (32.0-36.5); MEAN CORPUSCULAR VOLUME 96.8 fl (80.0-96.0); MONO # 0.9 10^3/uL (0.0-0.8); MONO % 3.3 % (0.0-5.0); NEUTROPHILS # 25.2 10^3/uL (1.5-8.5); NEUTROPHILS % 94.1 % (36.0-66.0); PLATELET COUNT, AUTOMATED 567 10^3/uL (150-450); WHITE BLOOD COUNT 26.7 10^3/uL (4.0-10.0)
[2019-10-19] MEDS ORDERED: LEVA750T7 PO (01:49)
[2019-10-19] MEDS ORDERED: IPRA0.00 NEB (01:49)
[2019-10-19 01:51] LABS: INR 1.39; PROTHROMBIN TIME 17.3 SECONDS (11.8-14.0)
[2019-10-19 01:52] LABS: PARTIAL THROMBOPLASTIN TIME 31.1 SECONDS (25.0-38.4)
[2019-10-19] MEDS ORDERED: POTA1TAB14 PO ×2 (01:53→02:11)
[2019-10-19] MEDS ORDERED: DOXY100C PO (01:53)
[2019-10-19 01:59] LABS: ALBUMIN 2.4 GM/DL (3.2-5.2); ALT/SGPT 18 U/L (12-78); BILIRUBIN,DIRECT 0.2 MG/DL (0.0-0.2); BILIRUBIN,TOTAL 0.8 MG/DL (0.2-1.0); BLOOD UREA NITROGEN 16 MG/DL (7-18); CALCIUM LEVEL 9.5 MG/DL (8.8-10.2); CARBON DIOXIDE LEVEL 25 MEQ/L (21-32); CHLORIDE LEVEL 113 MEQ/L (98-107); CREATININE FOR GFR 0.91 MG/DL (0.55-1.30); GLOMERULAR FILTRATION RATE > 60.0 (>45); GLUCOSE, FASTING 253 MG/DL (70-100); LIPASE 52 U/L (73-393); NT-PRO BNP 499 PG/ML (<125); POTASSIUM SERUM 3.8 MEQ/L (3.5-5.1); SODIUM LEVEL 147 MEQ/L (136-145)
[2019-10-19] MEDS ORDERED: BISA10SU27 PR (02:11)
[2019-10-19] MEDS ORDERED: OCEA0.654 (02:11)
[2019-10-19] MEDS ORDERED: ACET650S3 PR (02:11)
[2019-10-19] MEDS ORDERED: ENSUMIS6 PO (02:11)
[2019-10-19] MEDS ORDERED: ECOT81TA5 PO (02:11)
[2019-10-19] MEDS ORDERED: MILKSUS3 PO (02:11)
[2019-10-19] MEDS ORDERED: LOSA100T50 PO (02:11)
[2019-10-19] MEDS ORDERED: ALBU83IN NEB (02:11)
[2019-10-19] MEDS ORDERED: METF-839 PO (02:11)
[2019-10-19] MEDS ORDERED: ELIQ5TAB PO (02:11)
[2019-10-19] MEDS ORDERED: MIRA3350 PO (02:11)
[2019-10-19] MEDS ORDERED: VALA500T5 PO (02:11)
[2019-10-19] MEDS ORDERED: BUPR150T5 PO (02:11)
[2019-10-19] MEDS ORDERED: ATOR80TA59 PO (02:11)
[2019-10-19] MEDS ORDERED: APAP325T4 PO (02:11)
[2019-10-19] MEDS ORDERED: LEVO175T2 PO (02:11)
[2019-10-19] MEDS ORDERED: CYMB1CAP5 PO (02:11)
[2019-10-19] MEDS ORDERED: ENEMENE PR (02:11)
--- NOTE | 2019-10-19 02:40 | REPVR ---
PROCEDURE INFORMATION: Exam: XR Chest, 1 View Exam date and time: 10/19/2019 1:15 AM Age: 64 years old Clinical indication: Cough and fever. TECHNIQUE: Imaging protocol: XR of the chest Views: 1 view. COMPARISON: CR Chest, 2 view PA, Lat 10/17/2019 1:34 PM FINDINGS: Lungs: There is persistent airspace consolidation in the left lower lobe that is similar in appearance compared to the prior chest x-ray on 10/17/2019. Pleural space: There is persistent blunting of the left costophrenic angle, which may indicate a small left pleural effusion. No pneumothorax. Heart/Mediastinum: Unremarkable. No cardiomegaly. Bones/joints: Unremarkable. IMPRESSION: 1. Persistent airspace consolidation in the left lower lobe that is similar in appearance compared to the prior chest x-ray on 10/17/2019 and can be seen with pneumonia. 2. Persistent blunting of the left costophrenic angle, which may indicate a small left pleural effusion. Electronically signed by: Duy Garcia On 10/19/2019 02:39:53 AM
--- NOTE | 2019-10-19 03:20 | HPEPDOC ---
[facility] Medical History & Physical Date of Admission Oct 19, 2019 Date of Service: Oct 19, 2019 Primary Care Physician: Arnaud Pacheco M.D. Attending Physician: SHAUN LUCIO MD History and Physical TIME OF SERVICE: 325AM CHIEF COMPLAINT: sent from [place] HISTORY OF PRESENT ILLNESS: The history was obtained from , the patient has expressive aphasia. This 64 yr old F was sent from [facility] because she was noted to be hypoxic with a drop in her O2 sats to the 50s on RA and had a fever as high as 105 despite being on abx for PNA. In the ER she was put on a non-rebreather mask, and started on zosyn and IVF. At the time of my exam she was alert. 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 HOME MEDICATIONS: Please see below. PHYSICAL EXAMINATION: Vital Signs Date Time Temp Pulse Resp B/P (MAP) Pulse Ox O2 Delivery O2 Flow Rate FiO2 10/19/19 01:13 104.8 153 37 140/80 93 Non-Rebreather 10/19/19 01:48 15.0 10/19/19 03:36 100 GENERAL APPEARANCE: appears ill HEENT: venti mask in place CARDIOVASCULAR: tachycardic /NMRG/ no BLE edema LUNGS: tachypneic / breath sounds diminished ABDOMEN: soft MUSCULOSKELETAL: NCAT INTEGUMENT: not flushed or diaphoretic / extremities cool PSYCHIATRIC: lethargic / intermittently arousable w physical stimuli LABORATORY DATA: 10/19/19 01:15 Immature Granulocyte % (Auto) 0.8, Neutrophils (%) (Auto) 94.1H, Lymphocytes (%) (Auto) 1.6L, Monocytes (%) (Auto) 3.3, Eosinophils (%) (Auto) 0.0, Basophils (%) (Auto) 0.2, Neutrophils # (Auto) 25.2H, Lymphocytes # (Auto) 0.4L, Monocytes # (Auto) 0.9H, Eosinophils # (Auto) 0.0, Basophils # (Auto) 0.1, Nucleated Red Blood Cells % (auto) 0.0, Prothrombin Time 17.3H, Prothromb Time International Ratio 1.39, Activated Partial Thromboplast Time 31.1, Anion Gap 9, Glomerular Filtration Rate > 60.0, Lactic Acid Level 2.6*H, Calcium Level 9.5, Total Bilirubin 0.8, Direct Bilirubin 0.2, Aspartate Amino Transf (AST/SGOT) 22, Alanine Aminotransferase (ALT/SGPT) 18, Alkaline Phosphatase 134H, UE-Esn-M-Type Natriuretic Peptide 499H, Total Protein 7.0, Albumin 2.4L, Albumin/Globulin Ratio 0.5L, Lipase 52L IMAGING: Chest x-ray IMPRESSION: 1. Persistent airspace consolidation in the left lower lobe that is similar in appearance compared to the prior chest x-ray on 10/17/2019 and can be seen with pneumonia. 2. Persistent blunting of the left costophrenic angle, which may indicate a small left pleural effusion. MICROBIOLOGY: 10/19/19 Respiratory Virus Panel (PCR) ([facility]) - Final, Complete 10/19/19 Blood Culture, Received Pending 10/19/19 Blood Culture, Received Pending ASSESSMENT: is a 64 yr old [place] resident w a hx of ischemic and hemorrhagic CVAs, right hemiparesis & expressive aphasia who was sent for evaluation of hypoxia and fever and will be admitted for management of acute hypoxic respiratory failure and sepsis 2/2 PNA. PLAN: 1. Sepsis 2/2 PNA SIRS criteria fever, tachycardia, tachypnea and leukocytosis Lactic acid 2.6 Plan: admit to PCU / c/w IVF/ ceftriaxone, vanc and azithromycin pending blood cx, sputum cx, strep pneumo and legionella results 2. Hypoxic respiratory failure 2/2 PNA Plan: continuous pulse ox/ switch from ventimask to vapotherm f/u VBG 3. Chronic HTN Plan: hold Losartan for now 4. Chronic CAD / Hx of ischemic CVA Plan: ASA 5. DVT w IVC placement Plan: apixaban 6. DM Plan: FSBS, A1C, SSI, hypoglycemia protocol 7. 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 Hypothyroidism Plan: levothyroxine DVT px n/a on NOAC Dispo: back to [facility] after more than 2 midnights stay PFS consult placed Home Medications Scheduled Apixaban (Eliquis) 5 Mg Tablet, 5 MG PO BID Aspirin (Ecotrin) 81 Mg Tablet.dr, 81 MG PO DAILY Atorvastatin Calcium (Atorvastatin Calcium) 80 Mg Tablet, 80 MG PO QPM Bupropion Hcl (Bupropion HCl Sr) 150 Mg Tab.sr.12h, 150 MG PO BID Duloxetine Hcl (Cymbalta) 30 Mg Capsule.dr, 30 MG PO DAILY Ipratropium/Albuterol Sulfate (Iprat-Albut 0.5-3(2.5) mg/3 ml) 3 Ml Ampul.neb, 1 VIAL NEB Q6H x 4 days started 10/16/19 Levofloxacin (Levaquin) 750 Mg Tablet, 750 MG PO DAILY started x 7 days Levothyroxine Sodium (Levothyroxine Sodium) 175 Mcg Tablet, 175 MCG PO DAILY Losartan Potassium (Losartan Potassium) 100 Mg Tablet, 100 MG PO DAILY Metformin HCl (Metformin HCl) 500 Mg Tablet, 500 MG PO BID Nutritional Supplement (Ensure) 113 Gm Pudding, 113 GM PO BID Potassium Chloride (Potassium Chloride) 20 Meq Tablet.er, 20 MEQ PO BID Potassium Chloride (Potassium Chloride) 20 Meq Tablet.er, 40 MEQ PO DAILY started today Valacyclovir HCl (Valacyclovir) 500 Mg Tablet, 500 MG PO DAILY Scheduled PRN Acetaminophen (Acetaminophen) 325 Mg Tablet, 650 MG PO Q4H PRN for PAIN / FEVER Acetaminophen (Acetaminophen) 650 Mg Supp.rect, 650 MG W[place] Q4HP PRN for PAIN / FEVER Albuterol Sulf (Albuterol Sulfate) 2.5 Mg/3 Ml Vial.neb, 1 VIAL NEB Q2H PRN for SHORTNESS OF BREATH Bisacodyl (Bisacodyl) 10 Mg Supp.rect, 10 MG WV DAILY PRN for CONSTIPATION Magnesium Hydroxide (Milk of Magnesia) 400 Mg/5 Ml Oral.susp, 10 ML PO DAILY PRN for CONSTIPATION Nitroglycerin (Nitrostat) 0.4 Mg Subl, 0.4 MG SL Q5MP PRN for ANGINA Polyethylene Glycol 3350 (Miralax) 119 Gm Powder, 17 GM PO Q2D PRN for CONSTIPATION dilute in 8 ounces of water or juice Sodium Chloride ([place]) 104 Ml [place], 1 SPRAY NA BID PRN for NASAL CONGESTION EACH NOSTRIL Sodium Phosphate,Gra[place]-Dibasic (Enema) 133 Ml Enema, 1 JORGE [place] DAILY PRN for CON STIPATION Allergies Coded Allergies: bee venom protein (honey bee) (Unverified Allergy, Severe, 10/19/19) A-FIB/CHADSVASC A-FIB History Current/History of A-Fib/PAF?: No Current PO Anticoag Therapy: No SHAUN LUCIO MD Oct 19, 2019 03:20
[2019-10-19] MEDS ORDERED: ACETAMINOPHEN TAB 650MG DOSE (2X325MG) PO PRN (03:30)
[2019-10-19] MEDS ORDERED: MOM 30ML SUSPENSION UDC PO PRN ×2 (03:30→06:00)
[2019-10-19 03:36] VITALS: O2SAT 94
[2019-10-19] MEDS ORDERED: VANCOMYCIN HCL 1,000 MG, VIAL MATE ADAPTER 1 EACH in D5W 250 ML IV ONE (03:45)
[2019-10-19 04:30] VITALS: BP 133/74
[2019-10-19] MEDS ORDERED: ACETAMINOPHEN 650 MG SUPP PR PRN (04:45)
[2019-10-19] MEDS ORDERED: ALBUTEROL SULFATE 2.5 MG/0.5 ML INH NEB SOLN NEB PRN (06:00)
[2019-10-19] MEDS ORDERED: MIRALAX *UNIT DOSE* 17GM PACKET PO PRN (06:00)
[2019-10-19] MEDS ORDERED: LEVOTHYROXINE 150MCG TABLET (0.15MG) PO SCH (06:00)
[2019-10-19] MEDS ORDERED: HumaLOG INSULIN (NovoLOG) PER UNIT SC SCH (06:00)
[2019-10-19] MEDS ORDERED: IPRATROPIUM 0.5MG/ALBUTEROL 2.5MG INH SOL UD 3ML (DUONEB) NEB SCH (06:00)
[2019-10-19] MEDS ORDERED: NITROGLYCERIN 0.4 MG SUBL TABLET SL PRN (06:00)
[2019-10-19] MEDS ORDERED: BISACODYL 10 MG SUPP PR PRN (06:00)
[2019-10-19 06:22] LABS: VENOUS BASE EXCESS -3.5 (-2.0-2.0); VENOUS HCO3 19.3 MEQ/L (23.0-27.0); VENOUS O2 SATURATION 99.1 % (60.0-80.0); VENOUS PARTIAL PRESSURE CO2 28.8 mmHg (38.0-50.0); VENOUS PARTIAL PRESSURE O2 174.5 mmHg (30.0-50.0); VENOUS PH 7.445 UNITS (7.330-7.430); VENOUS STANDARD HCO3 21.6 MEQ/L; VENOUS TOTAL CO2 20.2 MEQ/L (24.0-28.0)
[2019-10-19] MEDS ORDERED: GLUCAGON INJ 1MG VIAL SC PRN (06:30)
[2019-10-19] MEDS ORDERED: NS 1,000 ML IV SCH (06:30)
[2019-10-19] MEDS ORDERED: DEXTROSE 50% 50 ML SYRINGE IV PRN (06:30)
[2019-10-19] MEDS ORDERED: GLUCOSE 4GM CHEW TABLET PO PRN (06:30)
[2019-10-19 08:00] VITALS: BP 131/89
[2019-10-19] MEDS ORDERED: VANCOMYCIN HCL 1,000 MG, VIAL MATE ADAPTER 1 EACH in D5W 250 ML IV SCH ×2 (09:00→18:00)
[2019-10-19] MEDS ORDERED: buPROPion **SR TABLET** (ZYBAN) 150MG PO SCH (09:00)
[2019-10-19] MEDS ORDERED: DULoxetine 30 MG CAP (CYMBALTA) PO SCH (09:00)
[2019-10-19] MEDS ORDERED: cefTRIAXone SOD 1 GM in D5W MINI-BAG PLUS 50 ML IV SCH (09:00)
[2019-10-19] MEDS ORDERED: ASPIRIN 81 MG ENTERIC TAB PO SCH (09:00)
[2019-10-19] MEDS ORDERED: valACYclovir HCL 500 MG TAB PO SCH (09:00)
[2019-10-19] MEDS ORDERED: APIXABAN 5 MG TAB (ELIQUIS) PO SCH (09:00)
[2019-10-19] MEDS ORDERED: MEROPENEM INJ 1 GM in IV 1 EA IV SCH (10:00)
[2019-10-19] MEDS ORDERED: AZITHROMYCIN INJ 500 MG, VIAL MATE ADAPTER 1 EACH in D5W 250 ML IV SCH (10:00)
[2019-10-19] MEDS ORDERED: ONDANSETRON 4MG/2ML VIAL IV PRN (11:00)
--- NOTE | 2019-10-19 11:57 | IPNPDOC ---
Text Note Date of Service The patient was seen on 10/19/19. NOTE Discussed with pts HCP, her sister Maya over the phone Poor prognosis, pt with Metabolic encephalopathy,sepsis with shock and peripheral cynosis. Pts HCP decided to opt for Comfort mesures only, DNR/DNI. Pt will be provided comfort care only and will DC all other meds. VS,Fishbone, I+O VS, Fishbone, I+O Laboratory Tests 10/19/19 01:15 Vital Signs Date Time Temp Pulse Resp B/P (MAP) Pulse Ox O2 Delivery O2 Flow Rate FiO2 10/19/19 08:00 101.1 108 18 131/89 (103) 100 35.0 100 10/19/19 04:51 HVNI-Vapotherm I&O- Last 24 Hours up to 6 AM 10/19/19 06:00 Intake Total 1050 ml Output Total 0 ml Balance 1050 ml BERTHA JORDAN MD Oct 19, 2019 11:57
[2019-10-19 17:15] VITALS: BP 149/96
[2019-10-19] MEDS ORDERED: LORazepam 2 MG/ML VIAL As Ordered ONE (17:54)
[2019-10-19] MEDS: MORPHINE 10 MG/ML 1ML VIAL (J2270) IV PRN (18:07)
[2019-10-19] MEDS: LORazepam 2 MG/ML VIAL IV PRN (18:08)
[2019-10-20] MEDS: MORPHINE 10 MG/ML 1ML VIAL (J2270) IV PRN (09:15)
[2019-10-20] MEDS ORDERED: LORazepam 2 MG/ML VIAL As Ordered ONE ×2 (11:09→15:58)
[2019-10-20] MEDS: LORazepam 2 MG/ML VIAL IV PRN (11:13)
[2019-10-20] MEDS ORDERED: LORazepam 2 MG/ML VIAL IV SCH (11:15)
[2019-10-20] MEDS ORDERED: MORPHINE 10 MG/ML 1ML VIAL (J2270) IV SCH (11:15)
--- NOTE | 2019-10-20 11:23 | IPNPDOC ---
Subjective Date Seen The patient was seen on 10/20/19. Subjective Chief Complaint/HPI Pt verbally non communicating but she has her eyes open and grimacing with pain and discomfort, her respiratory rate alson was noted to be increased. General: Reports: ROS Unobtainable Objective Physical Examination General Exam: Positive: Other (awake) ENT Exam: Positive: Tympanic Membranes Normal Chest Exam: Positive: Other (bilat diminished breath sounds with crackles and scattered rhonchi) Heart Exam: Positive: Normal S1, Normal S2 Abdomen Exam: Positive: Normal bowel sounds Extremity Exam: Positive: Normal pulses Skin Exam: Positive: Other skin issue (cold, clammy skin ) Neuro Exam: Positive: Other (moves all extremities occasionally) Assessment /Plan Problems (1) Sepsis Status: Acute Problem Text: Comfort care as per HCP's wishes I will start onMS 5 mg IV q 4 HR and Ativan 1mg IV q 4 hr as standing order to provide good pain and anxiety control to the patient who is unfortunately unable to voice her discomfort and pain. Will also continue PRN meds as per orders, once pt is comfortable with IV meds then will switch to long acting narcotics SL or PO to continue comfort care. (2) Respiratory failure Status: Acute Problem Text: COMMUNICATION EQUIPMENT REPAIRER (3) Pneumonia Status: Acute Problem Text: COMMUNICATION EQUIPMENT REPAIRER (4) Hypertension Status: Chronic Problem Text: COMMUNICATION EQUIPMENT REPAIRER (5) Hypothyroid Status: Chronic Problem Text: COMMUNICATION EQUIPMENT REPAIRER (6) History of cerebrovascular accident Status: Chronic Problem Text: COMMUNICATION EQUIPMENT REPAIRER (7) CAD (coronary artery disease) Status: Chronic Problem Text: COMMUNICATION EQUIPMENT REPAIRER (8) Anxiety Status: Chronic Problem Text: COMMUNICATION EQUIPMENT REPAIRER (9) Dyslipidemia Status: Chronic Problem Text: COMMUNICATION EQUIPMENT REPAIRER Plan/VTE VTE Prophylaxis Ordered?: No VTE Exclusion Mechanical Proph: Other (COMMUNICATION EQUIPMENT REPAIRER) VTE Exclusion Pharmacological: Other (COMMUNICATION EQUIPMENT REPAIRER) VS, I&O, 24H, Fishbone Vital Signs/I&O Vital Signs Date Time Temp Pulse Resp B/P (MAP) Pulse Ox O2 Delivery O2 Flow Rate FiO2 10/20/19 09:37 16 10/20/19 09:00 3.0 100 10/19/19 17:15 108 149/96 (113) 91 Nasal Cannula 10/19/19 08:00 101.1 I&O- Last 24 Hours up to 6 AM 10/20/19 06:00 Intake Total 0 ml Output Total 0 ml Balance 0 ml Laboratory Data Microbiology Microbiology 10/19/19 Respiratory Virus Panel (PCR) ([facility]) - Final, Complete 10/19/19 Blood Culture - Preliminary, Resulted No growth after 24 hours . All specim... 10/19/19 Blood Culture - Preliminary, Resulted No growth after 24 hours . All specim... BERTHA JORDAN MD Oct 20, 2019 11:23
[2019-10-20] MEDS: LORazepam 2 MG/ML VIAL IV SCH ×2 (16:05→20:22)
[2019-10-20] MEDS: MORPHINE 10 MG/ML 1ML VIAL (J2270) IV SCH ×2 (18:37→23:15)
[2019-10-21] MEDS: LORazepam 2 MG/ML VIAL IV SCH ×2 (00:21→04:09)
[2019-10-21] MEDS: MORPHINE 10 MG/ML 1ML VIAL (J2270) IV SCH ×2 (03:29→06:52)
--- NOTE | 2019-10-21 10:30 | IPNPDOC ---
Subjective Date Seen The patient was seen on 10/21/19. Subjective Chief Complaint/HPI pt is comfortable, in no distress General: Reports: ROS Unobtainable Objective Physical Examination General Exam: Positive: Other (awake) ENT Exam: Positive: Tympanic Membranes Normal Chest Exam: Positive: Other (bilat diminished breath sounds with crackles and scattered rhonchi) Heart Exam: Positive: Normal S1, Normal S2 Abdomen Exam: Positive: Normal bowel sounds Extremity Exam: Positive: Normal pulses Skin Exam: Positive: Other skin issue (cold, clammy skin ) Neuro Exam: Positive: Other (moves all extremities occasionally) Assessment /Plan Problems (1) Sepsis Status: Acute Problem Text: Comfort care as per HCP's wishes Pt is comfortable at present continue Morphine sulfate ,Zofran,Scopolamine,and Ativan spoke with HCP yesterday (2) Respiratory failure Status: Acute Problem Text: POLYGRAPH EXAMINER (3) Pneumonia Status: Acute Problem Text: POLYGRAPH EXAMINER (4) Hypertension Status: Chronic Problem Text: POLYGRAPH EXAMINER (5) Hypothyroid Status: Chronic Problem Text: POLYGRAPH EXAMINER (6) History of cerebrovascular accident Status: Chronic Problem Text: POLYGRAPH EXAMINER (7) CAD (coronary artery disease) Status: Chronic Problem Text: POLYGRAPH EXAMINER (8) Anxiety Status: Chronic Problem Text: POLYGRAPH EXAMINER (9) Dyslipidemia Status: Chronic Problem Text: POLYGRAPH EXAMINER Plan/VTE VTE Prophylaxis Ordered?: No VTE Exclusion Mechanical Proph: Other (POLYGRAPH EXAMINER) VTE Exclusion Pharmacological: Other (POLYGRAPH EXAMINER) VS, I&O, 24H, Fishbone Vital Signs/I&O Vital Signs Date Time Temp Pulse Resp B/P (MAP) Pulse Ox O2 Delivery O2 Flow Rate FiO2 10/21/19 06:52 10 10/21/19 03:29 Nasal Cannula 3.0 10/20/19 09:00 100 10/19/19 17:15 108 149/96 (113) 91 10/19/19 08:00 101.1 I&O- Last 24 Hours up to 6 AM 10/21/19 05:59 Intake Total 0 ml Output Total 0 ml Balance 0 ml Laboratory Data Microbiology Microbiology 10/19/19 Respiratory Virus Panel (PCR) ([facility]) - Final, Complete 10/19/19 Blood Culture - Preliminary, Resulted No Growth after 48 hours. All Specime... 10/19/19 Blood Culture - Preliminary, Resulted No Growth after 48 hours. All Specime... JULIAN,BERTHA MD Oct 21, 2019 10:30
[2019-10-21] MEDS: MORPHINE 10 MG/ML 1ML VIAL (J2270) IV PRN (20:08)
[2019-10-22] MEDS: POLYVINYL ALCOHOL OPHTH SOLN 15 ML(LIQUITEARS) OU PRN ×4 (00:15→17:44)
[2019-10-22] MEDS: MORPHINE 10 MG/ML 1ML VIAL (J2270) IV PRN ×3 (05:21→17:47)
--- NOTE | 2019-10-22 11:27 | IPNPDOC ---
Subjective Date Seen The patient was seen on 10/22/19. Subjective Chief Complaint/HPI pt comfortable, some gurgling noted General: Reports: ROS Unobtainable Objective Physical Examination General Exam: Positive: Other (awake) Chest Exam: Positive: Clear to auscultation Heart Exam: Positive: Normal S1, Normal S2 Abdomen Exam: Positive: Normal bowel sounds Extremity Exam: Positive: Normal pulses Assessment /Plan Problems (1) Sepsis Status: Acute Problem Text: Comfort care as per HCP's wishes Pt is comfortable at present continue Morphine sulfate ,Zofran,Scopolamine,and increase ativan to 2 mg IV q 2 hr prn Add levsin SL for anti-secretory action poor prognosis spoke with HCP yesterday (2) Respiratory failure Status: Acute 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 Text: PAPER CONE MAKER (3) Pneumonia Status: Acute Problem Text: PAPER CONE MAKER (4) Hypertension Status: Chronic Problem Text: PAPER CONE MAKER (5) Hypothyroid Status: Chronic Problem Text: PAPER CONE MAKER (6) History of cerebrovascular accident Status: Chronic Problem Text: PAPER CONE MAKER (7) CAD (coronary artery disease) Status: Chronic Problem Text: PAPER CONE MAKER (8) Anxiety Status: Chronic Problem Text: PAPER CONE MAKER (9) Dyslipidemia Status: Chronic Problem Text: PAPER CONE MAKER Plan/VTE VTE Prophylaxis Ordered?: No VTE Exclusion Mechanical Proph: Other (PAPER CONE MAKER) VTE Exclusion Pharmacological: Other (PAPER CONE MAKER) VS, I&O, 24H, Fishbone Vital Signs/I&O Vital Signs Date Time Temp Pulse Resp B/P (MAP) Pulse Ox O2 Delivery O2 Flow Rate FiO2 10/22/19 05:35 108 24 Nasal Cannula 3.0 10/21/19 11:02 100 10/19/19 17:15 149/96 (113) 91 10/19/19 08:00 101.1 I&O- Last 24 Hours up to 6 AM 10/22/19 06:00 Intake Total 0 ml Output Total 0 ml Balance 0 ml Laboratory Data Microbiology Microbiology 10/19/19 Respiratory Virus Panel (PCR) ([facility]) - Final, Complete 10/19/19 Blood Culture - Preliminary, Resulted No Growth after 72 hours. All specime... 10/19/19 Blood Culture - Preliminary, Resulted No Growth after 72 hours. All specime... BERTHA JORDAN MD Oct 22, 2019 11:27
[2019-10-22] MEDS: LORazepam 2 MG/ML VIAL IV PRN (11:36)
[2019-10-22] MEDS: HYOSCYAMINE SULFATE 0.125 MG SUBL TABLET SL SCH ×3 (12:42→23:53)
[2019-10-23] MEDS: LORazepam 2 MG/ML VIAL IV PRN
[2019-10-23] MEDS: POLYVINYL ALCOHOL OPHTH SOLN 15 ML(LIQUITEARS) OU PRN
[2019-10-23] MEDS: MORPHINE 10 MG/ML 1ML VIAL (J2270) IV PRN ×3 (00:01→08:33)
[2019-10-23] MEDS: HYOSCYAMINE SULFATE 0.125 MG SUBL TABLET SL SCH ×4 (05:11→23:22)
--- NOTE | 2019-10-23 11:41 | IPNPDOC ---
Subjective Date Seen The patient was seen on 10/23/19. Subjective Chief Complaint/HPI pt is comfortable, in no distress General: Reports: ROS Unobtainable Objective Physical Examination General Exam: Positive: Other (awake) Chest Exam: Positive: Clear to auscultation Heart Exam: Positive: Normal S1, Normal S2 Abdomen Exam: Positive: Normal bowel sounds Extremity Exam: Positive: Normal pulses Assessment /Plan Problems (1) Sepsis Status: Acute Problem Text: Comfort care as per HCP's wishes Pt is comfortable at present continue Morphine sulfate ,Zofran,Scopolamine,and increase ativan to 2 mg IV q 2 hr prn Add levsin SL for anti-secretory action poor prognosis family to visit her today (2) Respiratory failure Status: Acute Problem Text: IAP DISPLAYS ANALYST (3) Pneumonia Status: Acute Problem Text: IAP DISPLAYS ANALYST (4) Hypertension Status: Chronic Problem Text: IAP DISPLAYS ANALYST (5) Hypothyroid Status: Chronic Problem Text: IAP DISPLAYS ANALYST (6) History of cerebrovascular accident Status: Chronic Problem Text: IAP DISPLAYS ANALYST (7) CAD (coronary artery disease) Status: Chronic Problem Text: IAP DISPLAYS ANALYST (8) Anxiety Status: Chronic Problem Text: IAP DISPLAYS ANALYST (9) Dyslipidemia Status: Chronic Problem Text: IAP DISPLAYS ANALYST Plan/VTE VTE Prophylaxis Ordered?: No VTE Exclusion Mechanical Proph: Other (IAP DISPLAYS ANALYST) VTE Exclusion Pharmacological: Other (IAP DISPLAYS ANALYST) VS, I&O, 24H, Fishbone Vital Signs/I&O Vital Signs Date Time Temp Pulse Resp B/P (MAP) Pulse Ox O2 Delivery O2 Flow Rate FiO2 10/23/19 08:00 14 10/23/19 08:00 3.0 10/22/19 09:00 104 Nasal Cannula 10/21/19 11:02 100 10/19/19 17:15 149/96 (113) 91 10/19/19 08:00 101.1 I&O- Last 24 Hours up to 6 AM 10/23/19 06:00 Intake Total 0 ml Output Total 100 ml Balance -100 ml Laboratory Data 24H LABS Laboratory Tests 2 10/22/19 14:10: Lab Scanned Report Miscellaneous Lab Microbiology Microbiology 10/19/19 Respiratory Virus Panel (PCR) ([facility]) - Final, Complete 10/19/19 Blood Culture - Preliminary, Resulted No Growth after 72 hours. All specime... 10/19/19 Blood Culture - Preliminary, Resulted No Growth after 72 hours. All specime... BERTHA JORDAN MD Oct 23, 2019 11:41
[2019-10-24] MEDS: HYOSCYAMINE SULFATE 0.125 MG SUBL TABLET SL SCH ×4 (05:38→23:57)
[2019-10-24 12:49] VITALS: BP 149/96
[2019-10-24] MEDS: MORPHINE 10 MG/ML 1ML VIAL (J2270) IV PRN (12:49)
[2019-10-25] MEDS: HYOSCYAMINE SULFATE 0.125 MG SUBL TABLET SL SCH ×3 (05:32→17:19)
[2019-10-26] MEDS: HYOSCYAMINE SULFATE 0.125 MG SUBL TABLET SL SCH ×4 (06:00→18:00)
[2019-10-26] MEDS: MORPHINE 10 MG/ML 1ML VIAL (J2270) IV PRN (18:22)
[2019-10-27] MEDS: HYOSCYAMINE SULFATE 0.125 MG SUBL TABLET SL SCH ×4 (05:42→18:00)
[2019-10-27] MEDS: MORPHINE 10 MG/ML 1ML VIAL (J2270) IV PRN (15:53)
[2019-10-28] MEDS: HYOSCYAMINE SULFATE 0.125 MG SUBL TABLET SL SCH ×4 (05:39→18:00)
[2019-10-28] MEDS ORDERED: LORazepam 0.5 MG TAB PO PRN (11:30)
[2019-10-28] MEDS ORDERED: ONDANSETRON 4 MG ORAL DISINTEGRATING TAB SL PRN (11:30)
--- NOTE | 2019-10-28 11:30 | IPNPDOC ---
Text Note Date of Service The patient was seen on 10/28/19. NOTE SUB: pt is comfortable, in no distress, unconscious Objective Physical Examination General Exam: comfortable, lethargic Chest Exam: Positive: Clear to auscultation Heart Exam: Positive: Normal S1, Normal S2 Abdomen Exam: Positive:bowel sounds sluggish Assessment /Plan: 64 year old female resident of [facility] with h/o strokes with right hemiparesis, aphasia, CAD, was admitted for Pneumonia, sepsis with acute respiratory failure with hypoxia and metabolic encephalopathy. She then developed shock and peripheral cyanosis. Pateitn did not respond to antibiotics and IVF. Subsequently HCP wanted her to be kept comfortable with no further aggreesive treatment measures. 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 US CUSTOMS AND BORDER OFFICER status due to Pneumonia/Septic shock/Acute respiratory failure did not respond to antibiotics and IVF Family did not want any further aggressive measures. Continue ativan, morphine, scopolamine. will change to sublingual form. comfortable at present. 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 Depression/anxiety Hypothyroidism Dyslipidemia VS,Fishbone, I+O VS, Fishbone, I+O Vital Signs Date Time Temp Pulse Resp B/P (MAP) Pulse Ox O2 Delivery O2 Flow Rate FiO2 10/28/19 09:40 1.0 10/27/19 16:11 40 10/24/19 12:49 101.1 104 149/96 91 Nasal Cannula 100 I&O- Last 24 Hours up to 6 AM 10/28/19 06:00 Intake Total 0 ml Balance 0 ml JAZ HOLLIS MD Oct 28, 2019 11:30
[2019-10-28] MEDS: MORPHINE 10MG/0.5ML ORAL CONCENTRATE SOLUTION U/D SL PRN (13:21)
[2019-10-29] MEDS: HYOSCYAMINE SULFATE 0.125 MG SUBL TABLET SL SCH ×2 (06:00)
[2019-10-29] MEDS: MORPHINE 10MG/0.5ML ORAL CONCENTRATE SOLUTION U/D SL PRN (08:27)
[2019-10-29] MEDS ORDERED: ATIV1TAB10 PO (11:19)
[2019-10-29] MEDS ORDERED: HYOS125TA PO (11:19)
[2019-10-29] MEDS ORDERED: MORP20SO3 PO (11:19)
--- NOTE | 2019-10-30 16:14 | ECGEPIP ---
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
--- NOTE | 2019-11-02 11:42 | DS.PDOC ---
Discharge Summary General Date of Admission Oct 19, 2019 at 03:12 Date of Discharge 10/29/19 Discharge Summary PROCEDURES PERFORMED DURING STAY: [None]. 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 Depression/anxiety Hypothyroidism Dyslipidemia COMPLICATIONS/CHIEF COMPLAINT: Pneumonia, Sepsis, Resp Failure. HOSPITAL COURSE: 64 year old female resident of [facility] with h/o strokes with right hemiparesis, aphasia, CAD, was admitted for Pneumonia, sepsis with acute respiratory failure with hypoxia and metabolic encephalopathy. She then developed shock and peripheral cyanosis. Pateitn did not respond to antibiotics and IVF. Subsequently HCP wanted her to be kept comfortable with no further aggreesive treatment measures. 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 VICE PRESIDENT OF FINANCE status due to Pneumonia/Septic shock/Acute respiratory failure did not respond to antibiotics and IVF Family did not want any further aggressive measures. Continue ativan, morphine, scopolamine. will change to sublingual form. comfortable at present. 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 Depression/anxiety Hypothyroidism Dyslipidemia DISCHARGE MEDICATIONS: Please see below. ALLERGIES: Please see below. PHYSICAL EXAMINATION ON DISCHARGE: VITAL SIGNS: Please see below. General Exam: comfortable, unconscious Chest Exam: Positive: Clear to auscultation, slow respirations Heart Exam: Positive: S1, S2 heard Abdomen: no bowel sounds heard , soft , not distended. LABORATORY DATA: Please see below. ACTIVITY: [As tolerated]. DIET: NPO DISPOSITION: [facility] In Hospice TIME SPENT ON DISCHARGE: 25 minutes. Vital Signs/I&Os Vital Signs Date Time Temp Pulse Resp B/P (MAP) Pulse Ox O2 Delivery O2 Flow Rate FiO2 10/29/19 09:00 1.0 10/29/19 08:27 28 Discharge Medications Scheduled PRN Hyoscyamine Sulfate (Hyoscyamine Sulfate) 0.125 Mg Tab.subl, 0.125 MG PO Q4HP PRN for TERMINAL SECRETIONS Use sublingually if unable to swallow Lorazepam (Ativan) 0.5 Mg Tablet, 0.5 MG PO Q4HP PRN for ANXIETY/AGITATION Use sublingually if unable to swallow Morphine Sulfate (Morphine Sulfate) 100 Mg/5 Ml Solution, 0.25-1 ML PO Q2H PRN for PAIN OR DYSPNEA Use sublingually if unable to swallow Allergies Coded Allergies: bee venom protein (honey bee) (Unverified Allergy, Severe, 10/19/19) JAZ HOLLIS MD Nov 02, 2019 11:42
== END 2019-10-29 11:57 | DRG 871 ==
LOC: M ED 01:09 → M ED INP 03:12 → EEVIPCON 03:12 → ENRESERV 03:44 → M PCU 04:15 → M MSPAV 17:50
PROVIDERS: ADMIT Internal Medicine; ATTEND Internal Medicine Nephrology
DX: A41.9 Sepsis, unspecified organism (principal); J18.9 Pneumonia, unspecified organism; J96.01 Acute respiratory failure with hypoxia; R65.21 Severe sepsis with septic shock; I69.351 Hemiplegia and hemiparesis following cerebral infarction affecting right dominant side; I10 Essential (primary) hypertension; I25.10 Atherosclerotic heart disease of native coronary artery without angina pectoris; I25.2 Old myocardial infarction; E11.9 Type 2 diabetes mellitus without complications; F32.9 Major depressive disorder, single episode, unspecified; Z51.5 Encounter for palliative care; Z66 Do not resuscitate; F41.9 Anxiety disorder, unspecified; E78.5 Hyperlipidemia, unspecified; E03.9 Hypothyroidism, unspecified; I69.320 Aphasia following cerebral infarction; Z79.01 Long term (current) use of anticoagulants; Z79.84 Long term (current) use of oral hypoglycemic drugs; Z79.899 Other long term (current) drug therapy; Z91.030 Bee allergy status; Z86.718 Personal history of other venous thrombosis and embolism; Z11.59 Encounter for screening for other viral diseases